=== PATIENT | male | born 1945 | race Caucasian/White ===

== ENCOUNTER 2017-12-11 12:58 | Emergency (ER) | payer MEDICARE ==
[2015-11-19 12:08] VITALS: BMI 27.9
[~2017-12-11 12:58] MED LIST: ASPIRIN325 MG PO; BAYER CHEWABLE81 MG PO; LOPRESSOR25 MG PO; PLAVIX75 MG PO; PRAVACHOL20 MG PO; PRAVACHOL40 MG PO; VASOTEC20 MG PO
[2017-12-11 14:18] LABS: BASOPHILS 0.5 % (0-2); EOSINOPHILS 3.6 % (0-7); HEMATOCRIT 53.3 % (42.0-54.0); HEMOGLOBIN 17.9 g/dL (13.5-17.5); IMMATURE GRANULOCYTES 0.4 % (0-5); MCH 30.1 pg (26.0-34.0); MCHC 33.6 g/dL (31.0-37.0); MCV 89.7 fL (80.0-100.0); MEAN PLATELET VOLUME 9.3 fL (7.4-10.4); MONOCYTES 8.7 % (2-11); NEUTROPHILS 58.8 % (40-80); PLATELET COUNT 207 10x3/uL (130-400); RBC 5.94 10x6/uL (4.20-6.10); WBC 7.6 10x3/uL (4.8-10.8)
[2017-12-11 14:25] LABS: INR 1.02 (0.85-1.17)
[2017-12-11 14:28] LABS: D-DIMER-QUANTITATIVE < 0.27 ug/mLFEU (0.20-0.54)
[2017-12-11 14:35] LABS: ALBUMIN 3.7 g/dL (3.4-5.0); ALKALINE PHOSPHATASE 60 U/L (46-116); ALT (SGPT) 31 U/L (10-68); BILIRUBIN - TOTAL 0.68 mg/dL (0.2-1.3); CALC OSMOLALITY 284 mosm/kg (275-300); CALCIUM 9.1 mg/dL (8.5-10.1); CARBON DIOXIDE 27.1 mmol/L (21.0-32.0); CHLORIDE - SERUM 106 mmol/L (98-107); GLUCOSE 117 mg/dL (74-106); POTASSIUM - SERUM 3.8 mmol/L (3.5-5.1); PROTEIN - SERUM 6.9 g/dL (6.4-8.2); SODIUM 141 mmol/L (136-145); UREA NITROGEN 22 mg/dL (7-18); eGFR NON AFRICAN AMERICAN 78 mL/min (90-120)
[2017-12-11 14:41] LABS: CREATINE KINASE 19 UL (21-232); MAGNESIUM - SERUM 2.4 mg/dL (1.8-2.4); PRO BNP 210 pg/mL (0-125)
[2017-12-11 14:42] LABS: TROPONIN-I < 0.017 ng/mL (0.000-0.060)
[2017-12-11 16:51] LABS: APPEARANCE CLEAR (CLEAR); BILIRUBIN NEGATIVE (NEGATIVE); COLOR DK YELLOW (YELLOW); GLUCOSE NEGATIVE (NEGATIVE); KETONE NEGATIVE (NEGATIVE); NITRITE NEGATIVE (NEGATIVE); PROTEIN TRACE mg/dL (NEGATIVE); SPECIFIC GRAVITY 1.025 (1.005-1.020); UROBILINOGEN NORMAL (NORMAL)
== END 2017-12-11 18:53 | disposition home or self-care (01) ==
LOC: D.ER 12:58
PROVIDERS: Nurse Practitioner Family
DX: M79.605 Pain in left leg (principal); R53.1 Weakness

== ENCOUNTER 2018-05-30 17:22 | Emergency (ER) | payer MEDICARE ==
[~2018-05-30] VITALS: Ht 167.6 cm; Wt 62.7 kg
[2018-05-30 17:27] VITALS: Ht 167.6 cm; Wt 62.7 kg
[2018-05-30] MEDS ORDERED: NORCO 10-325 TA1 TAB PO (17:28)
[2018-05-30] MEDS ORDERED: DESERYL50 M2 PO (17:29)
[2018-05-30] MEDS ORDERED: ABILIFY10 MG PO (17:29)
[2018-05-30 18:42] LABS: BASOPHILS 0.6 % (0-2); EOSINOPHILS 2.4 % (0-7); HEMATOCRIT 49.4 % (42.0-54.0); HEMOGLOBIN 16.6 g/dL (13.5-17.5); IMMATURE GRANULOCYTES 0.5 % (0-5); MCH 30.2 pg (26.0-34.0); MCHC 33.6 g/dL (31.0-37.0); MCV 89.8 fL (80.0-100.0); MEAN PLATELET VOLUME 9.1 fL (7.4-10.4); MONOCYTES 8.4 % (2-11); NEUTROPHILS 59.1 % (40-80); PLATELET COUNT 210 10x3/uL (130-400); RDW 14.5 % (11.5-14.5); WBC 8.8 10x3/uL (4.8-10.8)
[2018-05-30 19:04] LABS: ALBUMIN 3.4 g/dL (3.4-5.0); ALKALINE PHOSPHATASE 52 U/L (46-116); ALT (SGPT) 24 U/L (10-68); CALC OSMOLALITY 287 mosm/kg (275-300); CARBON DIOXIDE 27.7 mmol/L (21.0-32.0); CHLORIDE - SERUM 107 mmol/L (98-107); GLUCOSE 104 mg/dL (74-106); POTASSIUM - SERUM 3.6 mmol/L (3.5-5.1); PROTEIN - SERUM 6.3 g/dL (6.4-8.2); SODIUM 144 mmol/L (136-145); UREA NITROGEN 14 mg/dL (7-18); eGFR NON AFRICAN AMERICAN 78 mL/min (90-120)
[2018-05-30 19:54] LABS: APPEARANCE CLEAR (CLEAR); BILIRUBIN NEGATIVE (NEGATIVE); COLOR DK YELLOW (YELLOW); GLUCOSE NEGATIVE (NEGATIVE); KETONE NEGATIVE (NEGATIVE); NITRITE NEGATIVE (NEGATIVE); PROTEIN NEGATIVE (NEGATIVE); UROBILINOGEN NORMAL (NORMAL)
[2018-05-30 19:55] LABS: BACTERIA FEW /hpf (NONE SEEN); CALCIUM OXALATE CRYSTALS 0-5 /hpf (NONE SEEN); EPITHELIAL CELLS 0-5 /hpf (0-5); MUCUS >1+ /lpf (NONE SEEN); RED CELLS - URINE 0-5 /hpf (0-5)
[2018-05-30 20:28] VITALS: BP 155/72
== END 2018-05-30 20:29 | disposition home or self-care (01) ==
LOC: D.ER 17:22
PROVIDERS: Emergency Medicine
DX: R26.89 Other abnormalities of gait and mobility (principal); Z91.81 History of falling; Z79.01 Long term (current) use of anticoagulants; I11.0 Hypertensive heart disease with heart failure; I50.9 Heart failure, unspecified; I25.10 Atherosclerotic heart disease of native coronary artery without angina pectoris; J44.9 Chronic obstructive pulmonary disease, unspecified

== ENCOUNTER 2018-11-09 20:35 | Inpatient (IN) | payer MEDICARE ==
[~2018-11-09] VITALS: Ht 167.6 cm; Wt 76.7 kg
[~2018-11-09 20:35] MED LIST changes: +ABILIFY10 MG PO; +DESERYL50 M2 PO; +NORCO 10-325 TA1 TAB PO
[2018-11-09 21:07] LABS: BASOPHILS 0.3 % (0-2); HEMATOCRIT 57.6 % (42.0-54.0); HEMOGLOBIN 19.6 g/dL (13.5-17.5); IMMATURE GRANULOCYTES 0.3 % (0-5); LYMPHOCYTES 10.5 % (15-50); MCV 85.3 fL (80.0-100.0); MEAN PLATELET VOLUME 9.4 fL (7.4-10.4); NEUTROPHILS 79.9 % (40-80); PLATELET COUNT 209 10x3/uL (130-400); RDW 14.9 % (11.5-14.5); WBC 14.9 10x3/uL (4.8-10.8)
[2018-11-09 21:12] LABS: RBC 6.75 10x6/uL (4.20-6.10)
[2018-11-09 21:25] LABS: ALBUMIN 3.8 g/dL (3.4-5.0); ALKALINE PHOSPHATASE 72 U/L (46-116); ALT (SGPT) 22 U/L (10-68); BILIRUBIN - TOTAL 1.07 mg/dL (0.2-1.3); CALC OSMOLALITY 282 mosm/kg (275-300); CALCIUM 9.1 mg/dL (8.5-10.1); CHLORIDE - SERUM 104 mmol/L (98-107); CREATININE - SERUM 1.1 mg/dL (0.6-1.3); GLUCOSE 124 mg/dL (74-106); POTASSIUM - SERUM 3.8 mmol/L (3.5-5.1); PROTEIN - SERUM 7.5 g/dL (6.4-8.2); SODIUM 141 mmol/L (136-145); UREA NITROGEN 15 mg/dL (7-18); eGFR NON AFRICAN AMERICAN 70 mL/min (90-120)
[2018-11-09 21:32] LABS: AMYLASE - SERUM 88 U/L (25-115); LIPASE 127 U/L (73-393)
[2018-11-09 21:33] LABS: TROPONIN-I < 0.017 ng/mL (0.000-0.060)
[2018-11-09 23:49] LABS: APPEARANCE HAZY (CLEAR); BILIRUBIN NEGATIVE (NEGATIVE); COLOR YELLOW (YELLOW); GLUCOSE NEGATIVE (NEGATIVE); KETONE NEGATIVE (NEGATIVE); NITRITE NEGATIVE (NEGATIVE); PROTEIN NEGATIVE (NEGATIVE); SPECIFIC GRAVITY 1.015 (1.005-1.020); UROBILINOGEN NORMAL (NORMAL)
--- NOTE | 2018-11-10 00:15 | NUR ---
RECIEVED TO ROOM FROM ER ALERT AND ORIENTIATED, VERY KNIK AT BEDSIDE EXPLAINED THAT WOULD HAVE HOME SERVICE CONSULTANT MORPHINE FOR PAIN CONTROL STATES HE HAS HAD THAT BEFOR AND KNOWS HOW TO USE IT, CALL LIGHT IN REACH, INSTRUCTED TO CALL FOR ASSISTANCE BEFORE GETTING UP VERBALIZED UNDERSTANDING, SEE ASSESSMENT
[2018-11-10 00:56] VITALS: BP 143/77; BMI 27.3
[2018-11-10 04:47] VITALS: BP 128/84
[2018-11-10 05:32] LABS: BASOPHILS 0.3 % (0-2); EOSINOPHILS 0.8 % (0-7); HEMATOCRIT 50.1 % (42.0-54.0); HEMOGLOBIN 16.1 g/dL (13.5-17.5); IMMATURE GRANULOCYTES 0.3 % (0-5); LYMPHOCYTES 13.1 % (15-50); MCHC 32.1 g/dL (31.0-37.0); MEAN PLATELET VOLUME 9.5 fL (7.4-10.4); NEUTROPHILS 76.5 % (40-80); PLATELET COUNT 183 10x3/uL (130-400); RBC 5.74 10x6/uL (4.20-6.10)
[2018-11-10 05:35] LABS: MCV 87.3 fL (80.0-100.0); WBC 10.9 10x3/uL (4.8-10.8)
[2018-11-10 06:01] LABS: ALKALINE PHOSPHATASE 50 U/L (46-116); BILIRUBIN - TOTAL 0.81 mg/dL (0.2-1.3); CALC OSMOLALITY 284 mosm/kg (275-300); CALCIUM 7.7 mg/dL (8.5-10.1); CARBON DIOXIDE 25.6 mmol/L (21.0-32.0); CHLORIDE - SERUM 109 mmol/L (98-107); GLUCOSE 106 mg/dL (74-106); POTASSIUM - SERUM 3.9 mmol/L (3.5-5.1); SODIUM 143 mmol/L (136-145); UREA NITROGEN 12 mg/dL (7-18)
[2018-11-10 06:26] LABS: ALBUMIN 2.8 g/dL (3.4-5.0); ALT (SGPT) 15 U/L (10-68); CREATININE - SERUM 0.8 mg/dL (0.6-1.3); PROTEIN - SERUM 5.6 g/dL (6.4-8.2); eGFR NON AFRICAN AMERICAN > 90 mL/min (90-120)
--- NOTE | 2018-11-10 08:00 | NUR ---
MORNING ASSESSMENT COMPLETE. SEE ASSESSMENT FLWNETTIE FOR FURTHER DETAILS. PT LYING IN BED AAO X4 TO PERSON, PLACE, TIME, AND SITUATION. FAMILY AT BEDSIDE. DENIES NEEDS AT THIS TIME. CL IN REACH. SIDE RAILS UP X3 FOR PATIENT SAEFTY. BED IN LOWEST POSITION
[2018-11-10 09:19] VITALS: BP 138/75
[2018-11-10 12:43] VITALS: BP 136/77
[2018-11-10 13:26] VITALS: Ht 167.6 cm; Wt 76.7 kg
--- NOTE | 2018-11-10 14:47 | MORECARE ---
CASE MANAGEMENT DISCHARGE SUMMARY PATIENT: LORETTA GUAMAN UNIT: [id number] ADM DATE: 11/09/18 AGE: 73 : 47 SEX: M ROOM/BED: D.2233 AUTHOR: NATALI CORDOVA PHYSICIAN: REFERRING PHYSICIAN: SHAE RIVERA MD DATE OF SERVICE: 11/10/18 Discharge Plan Patient Name: LORETTA GUAMAN [facility] [facility] 1945 Planned Disposition: Home Anticipated Discharge Date: Discharge Date: Expected LOS: Initial Reviewer: [email or web address] Initial Review Date: 11/10/2018 Generated: 11/10/18 3:47 pm Patient Name: LORETTA GUAMAN Page [id number] at 1447 All edits/amendments must be made on the electronic document DICTATION DATE: 11/10/18 1446 GROUP MANAGING DIRECTOR: LES 11/10/18 1446 RPT#: [id number] DC DATE: STATUS: ADM IN [facility] [address] [place] [address] END OF REPORT
--- NOTE | 2018-11-10 14:56 | MORECARE ---
CASE MANAGEMENT DISCHARGE SUMMARY PATIENT: LORETTA CONTE UNIT: [id number] ADM DATE: 11/09/18 AGE: 73 : 47 SEX: M ROOM/BED: D.2233 AUTHOR: NATALI CORDOVA PHYSICIAN: REFERRING PHYSICIAN: SHAE RIVERA MD DATE OF SERVICE: 11/10/18 Discharge Plan Patient Name: LORETTA CONTE [facility] [facility] 1945 Planned Disposition: Home Anticipated Discharge Date: Discharge Date: Expected LOS: Initial Reviewer: [email or web address] Initial Review Date: 11/10/2018 Generated: 11/10/18 3:56 pm DCPIA - Discharge Planning Initial Assessment Updated by [email or web address]: Celeste Newberry on 11/10/18 2:51 pm * Is the patient Alert and Oriented? Yes * How many steps to enter\exit or inside your home? 1 flight/0 * PCP Dr. Viramontes * Pharmacy [facility] in [place] * Preadmission Environment Home with Family * ADLs Independent * Equipment Cane Walker * List name and contact numbers for known caregivers / representatives who currently or will assist patient after discharge: Emili Conte - spouse Safia Odom DTR * Verbal permission to speak to the caregivers and representatives has been obtained from the patient. Yes * Community resources currently utilized None * Additional services required to return to the preadmission environment? No * Can the patient safely return to the preadmission environment? Yes * Has this patient been hospitalized within the prior 30 days at any hospital? No Last DP export: 11/10/18 1:47 p Patient Name: LORETTA CONTE Page 99444 at 1456 All edits/amendments must be made on the electronic document DICTATION DATE: 11/10/181455 SEWING MACHINE ASSEMBLER: LES 11/10/181455 RPT#: [id number] DC DATE: STATUS: ADM IN [facility] [address] [place] [address] END OF REPORT
--- NOTE | 2018-11-10 15:06 | MORECARE ---
CASE MANAGEMENT DISCHARGE SUMMARY PATIENT: LORETTA CONTE UNIT: [id number] ADM DATE: 11/09/18 AGE: 73 : 47 SEX: M ROOM/BED: D.2233 AUTHOR: NATALI CORDOVA PHYSICIAN: REFERRING PHYSICIAN: SHAE RIVERA MD DATE OF SERVICE: 11/10/18 Discharge Plan Patient Name: LORETTA CONTE Facility: [facility]:[place] : 1945 Planned Disposition: Home Anticipated Discharge Date: Discharge Date: Expected LOS: Initial Reviewer: [email or web address] Initial Review Date: 11/10/2018 Generated: 11/10/18 4:06 pm Comments DCP- Discharge Planning Updated by [email or web address]: Celeste Newberry on 11/10/18 1:[address] Patient Name: LORETTA CONTE Admission Status: ER Accout number: [id number] Admission Date: 11-09-2018 : 1945 Admission Diagnosis: Attending: SHAE RIVERA Current LOS: 1 Anticipated DC Date: Planned Disposition: Home Primary Insurance: UNINSURED DISCOUNT PLAN Discharge Planning Comments: CM met with patient to discuss discharge planning, he is alone in the room. He states he lives with his . States he is independent with all ADL's and AIDL's. States he has a cane and a walker, but he does not use them. States his daughter, Safia, will drive him home on discharge. I discussed the availability of inpatient rehab, SNF, home health and additional DME if needed. He declines needs at this time. States his discharge plan is to return home with his and feels this is a safe discharge. CM will continue to follow and assist with discharge planning/needs. Spout Liner: Celeste Newberry DCPIA - Discharge Planning Initial Assessment Updated by [email or web address]: Celeste Newberry on 11/10/18 2:51 pm * Is the patient Alert and Oriented? Yes * How many steps to enter\exit or inside your home? 1 flight/0 * PCP Dr. Viramontes * Pharmacy [facility] in [place] * Preadmission Environment Home with Family * ADLs Independent * Equipment Cane Walker * List name and contact numbers for known caregivers / representatives who currently or will assist patient after discharge: Emili Conte - spouse Safia Gutierrez - VERN * Verbal permission to speak to the caregivers and representatives has been obtained from the patient. Yes * Community resources currently utilized None * Additional services required to return to the preadmission environment? No * Can the patient safely return to the preadmission environment? Yes * Has this patient been hospitalized within the prior 30 days at any hospital? No Last DP export: 11/10/18 1:56 p Patient Name: LORETTA CONTE Page 78116 at 1506 All edits/amendments must be made on the electronic document DICTATION DATE: 11/10/18 1506 DRIVERS LICENSE EXAMINER: LES 11/10/18 1506 RPT#: [id number] DC DATE: STATUS: ADM IN [facility] [address] [place] [address] END OF REPORT
[2018-11-10 16:14] VITALS: BP 120/78
--- NOTE | 2018-11-10 20:18 | NUR ---
ASSESSMENT COMPLETE. NO DISTRESS NOTED. PT WITHOUT COMPLAINTS AT THIS TIME.
[2018-11-10 21:02] VITALS: BP 168/76
--- NOTE | 2018-11-10 23:42 | NUR ---
PT LAYING IN BED, EYES CLOSED, CHEST RISING AND FALLING.
[2018-11-11 04:46] VITALS: BP 126/71
--- NOTE | 2018-11-11 04:49 | NUR ---
I have reviewed this patient and I concur with the Shift Assessment completed by the Licensed Practical Nurse today this shift.
--- NOTE | 2018-11-11 05:20 | NUR ---
PT LAYING IN BED AT THIS TIME. NO DISTRESS NOTED. NO COMPLAINTS AT THIS TIME.
[2018-11-11 06:33] LABS: BASOPHILS 0.4 % (0-2); EOSINOPHILS 1.8 % (0-7); HEMATOCRIT 45.5 % (42.0-54.0); HEMOGLOBIN 14.6 g/dL (13.5-17.5); IMMATURE GRANULOCYTES 0.2 % (0-5); LYMPHOCYTES 14.4 % (15-50); MCHC 32.1 g/dL (31.0-37.0); MCV 87.3 fL (80.0-100.0); MEAN PLATELET VOLUME 9.5 fL (7.4-10.4); MONOCYTES 7.2 % (2-11); PLATELET COUNT 171 10x3/uL (130-400); RBC 5.21 10x6/uL (4.20-6.10); RDW 14.9 % (11.5-14.5); WBC 8.5 10x3/uL (4.8-10.8)
[2018-11-11 06:46] LABS: CALC OSMOLALITY 277 mosm/kg (275-300); CALCIUM 8.1 mg/dL (8.5-10.1); CARBON DIOXIDE 25.5 mmol/L (21.0-32.0); CHLORIDE - SERUM 106 mmol/L (98-107); CREATININE - SERUM 0.8 mg/dL (0.6-1.3); GLUCOSE 85 mg/dL (74-106); POTASSIUM - SERUM 3.8 mmol/L (3.5-5.1); SODIUM 141 mmol/L (136-145); eGFR NON AFRICAN AMERICAN > 90 mL/min (90-120)
[2018-11-11 06:47] LABS: UREA NITROGEN 8 mg/dL (7-18)
[2018-11-11 09:35] VITALS: BP 155/86
--- NOTE | 2018-11-11 10:38 | NUR ---
MORNING ASSESSMENT COMPLETE. SEE ASSESSMENT FLOWSHEET FOR FURHTER DETAILS. PT LYING IN BED AAO X4 TO PERSON, PLACE, TIME, AND SITUATION. DENIES NEEDS AT THIS TIME. CL IN REACH. SIDE RAILS UP X3 FOR PT SAFETY. BED IN LOWEST POSITION.
[2018-11-11 13:24] VITALS: BP 139/79
[2018-11-11 17:46] VITALS: BP 127/62
[2018-11-11 20:00] VITALS: BP 116/58
[2018-11-12] VITALS: BP 125/68
--- NOTE | 2018-11-12 03:40 | NUR ---
A&OX3, DENIES PAIN/DISCOMFORT, STATES IT IS WELL CONTROLLED WITH MOLDING PLASTERER. DENIES CURRENT NEEDS. WILL CONTINUE TO MONITOR.
[2018-11-12 04:00] VITALS: BP 112/76
--- NOTE | 2018-11-12 07:32 | NUR ---
I CONCUR WITH AWS ARCHITECT ASSESSMENT.
--- NOTE | 2018-11-12 07:32 | NUR ---
I CONCUR WITH OBSTETRICS GYN ASSESSMENT.
--- NOTE | 2018-11-12 07:45 | NUR ---
PATIENT IN BED WITH EYES CLOSED RESTING QUIETLY. CALL LIGHT WITHIN REACH.
[2018-11-12 08:38] LABS: HEMATOCRIT 45.5 % (42.0-54.0); HEMOGLOBIN 14.9 g/dL (13.5-17.5); LYMPHOCYTES 24.8 % (15-50); MCH 27.9 pg (26.0-34.0); MCHC 32.7 g/dL (31.0-37.0); MEAN PLATELET VOLUME 8.8 fL (7.4-10.4); PLATELET COUNT 192 10x3/uL (130-400); RBC 5.34 10x6/uL (4.20-6.10); RDW 14.1 % (11.5-14.5)
[2018-11-12 08:41] LABS: MCV 85.2 fL (80.0-100.0); WBC 6.1 10x3/uL (4.8-10.8)
[2018-11-12 08:53] LABS: CALC OSMOLALITY 280 mosm/kg (275-300); CALCIUM 7.8 mg/dL (8.5-10.1); CARBON DIOXIDE 25.7 mmol/L (21.0-32.0); CHLORIDE - SERUM 107 mmol/L (98-107); CREATININE - SERUM 0.5 mg/dL (0.6-1.3); GLUCOSE 90 mg/dL (74-106); POTASSIUM - SERUM 3.7 mmol/L (3.5-5.1); SODIUM 142 mmol/L (136-145); UREA NITROGEN 6 mg/dL (7-18); eGFR NON AFRICAN AMERICAN > 90 mL/min (90-120)
--- NOTE | 2018-11-12 10:30 | NUR ---
PATIENT SITTING UP IN CHAIR WITH NO COMPLAINTS. ALARM ON. CALL LIGHT WITHIN REACH.
--- NOTE | 2018-11-12 12:43 | NUR ---
Nutrition Follow Up: Chart reviewed. Diet has been advanced to regular. No BM since admit Wt stable Meds and labs reviewed Rec continue current ELIAN. RD following.
[2018-11-12 14:20] VITALS: BP 156/89
[2018-11-12 17:57] VITALS: BP 135/73
--- NOTE | 2018-11-12 18:45 | NUR ---
PATIENT IN BED WITH IV INTACT. NO COMPLAINTS. FAMILY AT BEDSIDE. CALL LIGHT WITHIN REACH.
--- NOTE | 2018-11-12 19:39 | NUR ---
RECEIVED REPORT, ASSUMED CARE, SLEEPING, BREATHING EVEN UNLABORED, CALL LIGHT IN REACH, NO S/S OF DISTRESS NOTED, BED LOWEST POSITION, WILL CONTINUE POC
[2018-11-12 20:03] VITALS: BP 145/78
[2018-11-12 23:47] VITALS: BP 159/88
--- NOTE | 2018-11-13 02:13 | NUR ---
I have reviewed this patient and I concur with the Shift Assessment completed by the Licensed Practical Nurse today this shift. PT IS AWAKE AT THIS TIME WITH THE TV ON AND URINAL AT THE BEDSIDE.
[2018-11-13 04:00] VITALS: BP 172/91
[2018-11-13 05:59] LABS: BASOPHILS 0.6 % (0-2); EOSINOPHILS 4.3 % (0-7); HEMATOCRIT 48.4 % (42.0-54.0); HEMOGLOBIN 15.9 g/dL (13.5-17.5); IMMATURE GRANULOCYTES 0.3 % (0-5); LYMPHOCYTES 28.7 % (15-50); MCH 28.3 pg (26.0-34.0); MCHC 32.9 g/dL (31.0-37.0); MCV 86.1 fL (80.0-100.0); MEAN PLATELET VOLUME 9.4 fL (7.4-10.4); MONOCYTES 9.1 % (2-11); PLATELET COUNT 219 10x3/uL (130-400); RBC 5.62 10x6/uL (4.20-6.10); RDW 14.7 % (11.5-14.5); WBC 6.9 10x3/uL (4.8-10.8)
[2018-11-13 06:17] LABS: CALC OSMOLALITY 284 mosm/kg (275-300); CALCIUM 8.1 mg/dL (8.5-10.1); CHLORIDE - SERUM 107 mmol/L (98-107); GLUCOSE 93 mg/dL (74-106); POTASSIUM - SERUM 3.3 mmol/L (3.5-5.1); SODIUM 144 mmol/L (136-145); UREA NITROGEN 7 mg/dL (7-18); eGFR NON AFRICAN AMERICAN 88 mL/min (90-120)
[2018-11-13 06:18] LABS: CREATININE - SERUM 0.9 mg/dL (0.6-1.3)
--- NOTE | 2018-11-13 07:40 | NUR ---
PT SITTING UP IN BED WATCHING TV. NO ACUTE DISTRESS NOTED AT THIS TIME. REPORTS LOWER ABDOMINAL PAIN 2/10 AT THIS TIME. SALINE LOCK TO RIGHT WRIST, SITE WITHOUT REDNESS OR EDEMA. DENIES FURTHER NEEDS AT THIS TIME. CL WITHIN REACH. ENCOURAGED TO CALL WITH NEEDS. CONTINUE POC
[2018-11-13 08:44] VITALS: BP 183/89
[2018-11-13] MEDS ORDERED: LEVOFLOXACIN500 MG PO (10:31)
[2018-11-13] MEDS ORDERED: MIRALAX17 GM PO (10:32)
[2018-11-13] MEDS ORDERED: HYDROCODON-ACE1 EAC7 PO (10:32)
[2018-11-13] MEDS ORDERED: FLAGYL500 MG PO (10:32)
[2018-11-13 12:32] VITALS: BP 166/80
--- NOTE | 2018-11-13 13:50 | NUR ---
PT DISCHARGE INSTRUCTIONS PROVIDED TO PT AND FAMILY. NO QUESTIONS VOICED. [facility] [place] [facility] TO [facility]IN[facility]. SALINE LOC D/C'D FROM RIGHT WRIST, CATH INTACT. PT TAKEN OUT VIA W/C TO PRIVATE VEHICLE WITH ALL PERSONAL POSESSIONS.
== END 2018-11-13 14:16 | disposition home or self-care (01) | DRG 392 ==
LOC: D.ER 20:35 → D.MS 23:14 → D.ER 11-11 17:03 → D.MS 11-11 17:03
PROVIDERS: Family Medicine; ADMIT Surgery; ATTEND Surgery
DX: K57.20 Diverticulitis of large intestine with perforation and abscess without bleeding (principal); G81.94 Hemiplegia, unspecified affecting left nondominant side; I11.0 Hypertensive heart disease with heart failure; I50.9 Heart failure, unspecified; I25.10 Atherosclerotic heart disease of native coronary artery without angina pectoris; E78.5 Hyperlipidemia, unspecified

== ENCOUNTER 2019-02-27 16:53 | Inpatient (IN) | payer MEDICARE ==
[~2019-02-27] VITALS: Ht 167.6 cm; Wt 74.8 kg
[~2019-02-27 16:53] MED LIST changes: +FLAGYL500 MG PO; +HYDROCODON-ACE1 EA10 PO; +HYDROCODON-ACE1 EAC7 PO; +LEVOFLOXACIN500 MG PO; +MIRALAX17 GM PO; -NORCO 10-325 TA1 TAB PO
[2019-02-27 17:27] LABS: BASOPHILS 0.2 % (0-2); EOSINOPHILS 2.4 % (0-7); HEMATOCRIT 48.5 % (42.0-54.0); HEMOGLOBIN 16.2 g/dL (13.5-17.5); IMMATURE GRANULOCYTES 0.5 % (0-5); LYMPHOCYTES 16.3 % (15-50); MCH 29.6 pg (26.0-34.0); MCHC 33.4 g/dL (31.0-37.0); MCV 88.7 fL (80.0-100.0); MEAN PLATELET VOLUME 9.6 fL (7.4-10.4); MONOCYTES 7.9 % (2-11); NEUTROPHILS 72.7 % (40-80); PLATELET COUNT 198 10x3/uL (130-400); RBC 5.47 10x6/uL (4.20-6.10); RDW 14.8 % (11.5-14.5); WBC 10.2 10x3/uL (4.8-10.8)
[2019-02-27 17:47] LABS: ALKALINE PHOSPHATASE 65 U/L (46-116); ALT (SGPT) 38 U/L (10-68); BILIRUBIN - TOTAL 0.34 mg/dL (0.2-1.3); CALC OSMOLALITY 286 mosm/kg (275-300); CALCIUM 8.4 mg/dL (8.5-10.1); CARBON DIOXIDE 26.7 mmol/L (21.0-32.0); CHLORIDE - SERUM 110 mmol/L (98-107); GLUCOSE 103 mg/dL (74-106); POTASSIUM - SERUM 3.7 mmol/L (3.5-5.1); PROTEIN - SERUM 6.5 g/dL (6.4-8.2); SODIUM 143 mmol/L (136-145); UREA NITROGEN 18 mg/dL (7-18); eGFR NON AFRICAN AMERICAN 78 mL/min (90-120)
[2019-02-27 17:53] LABS: AMYLASE - SERUM 88 U/L (25-115); LIPASE 176 U/L (73-393); TROPONIN-I 0.022 ng/mL (0.000-0.060)
--- NOTE | 2019-02-27 18:25 | NUR ---
RESPIRATIOSN ARE EVEN AND UNLABORED AT THIS TIME. NO DISTRESS NOTED. COLOR WNL FOR RACE. VSS. FAMILY AT BEDSIDE. IV PATENT WITHOUT SIGNS OF INFILTRATION NOTED. WILL CONTINUE TO MONITOR.
--- NOTE | 2019-02-27 18:25 | NUR ---
PT RETURNED FROM CT AT THIS TIME.
[2019-02-27 18:26] VITALS: BP 144/73
--- NOTE | 2019-02-27 20:25 | NUR ---
MIXED INVANZ IN 100 ML NORMAL SALINE INFUSING OVER 30 MINUTES.
[2019-02-27 20:37] LABS: APPEARANCE CLEAR (CLEAR); BILIRUBIN NEGATIVE (NEGATIVE); COLOR YELLOW (YELLOW); GLUCOSE NEGATIVE (NEGATIVE); KETONE NEGATIVE (NEGATIVE); NITRITE NEGATIVE (NEGATIVE); PROTEIN TRACE mg/dL (NEGATIVE); SPECIFIC GRAVITY 1.015 (1.005-1.020); UROBILINOGEN NORMAL (NORMAL)
[2019-02-27 20:39] VITALS: BP 150/76
[2019-02-27 20:39] LABS: BACTERIA FEW /hpf (NONE SEEN); RED CELLS - URINE 0-5 /hpf (0-5); WHITE CELLS - URINE RARE /hpf (0-5)
--- NOTE | 2019-02-27 21:00 | NUR ---
SOY STOPPED AT THIS TIME.
[2019-02-27] MEDS ORDERED: MIRALAX17 GM PO (21:33)
[2019-02-27] MEDS ORDERED: BISOPROLOL-HCTZ1 TA5 PO (21:37)
[2019-02-27 23:01] VITALS: BP 141/76; BMI 26.7
[2019-02-28 01:27] VITALS: BP 120/80
--- NOTE | 2019-02-28 07:15 | NUR ---
PT RESTING IN BED WITH EYES CLOSED. OPENS EYES SPONTANEOUSLY. NO ACUTE DISTRESS NOTED AT THIS TIME. REPORTS PAIN 3/10 AT THIS TIME, WITH ABDMINAL TENDERNESS. REMAINS NPO AT THIS TIME. IV TO R AC WITH D5LR @ 100ML/HR INFUSING VIA PUMP. SITE WITHOUT REDNESS OR EDEMA. DENIES FURTHER NEEDS AT THIS TIME. CL WITHIN REACH. ENCOURAGED TO CALL WITH NEEDS. CONTINUE POC
[2019-02-28 08:43] VITALS: BP 124/70
--- NOTE | 2019-02-28 10:15 | NUR ---
PT RESTING QUIETLY IN BED. NO ACUTE DISTRESS NOTED AT THIS TIME. RATES PAIN 2/10 AT THIS TIME. PT ASSISTED FROM BED TO BATHROOM AND BACK TO BED. FRANCISCO WELL. DENIES FURTHER NEEDS AT THIS TIME. CL WITHIN REACH. ENCOURAGED TO CALL WITH NEEDS.
[2019-02-28 12:17] VITALS: BMI 26.6
[2019-02-28 13:03] LABS: BASOPHILS 0.5 % (0-2); EOSINOPHILS 3.1 % (0-7); HEMATOCRIT 48.4 % (42.0-54.0); HEMOGLOBIN 15.9 g/dL (13.5-17.5); IMMATURE GRANULOCYTES 0.3 % (0-5); LYMPHOCYTES 23.6 % (15-50); MCH 29.3 pg (26.0-34.0); MCHC 32.9 g/dL (31.0-37.0); MCV 89.3 fL (80.0-100.0); MEAN PLATELET VOLUME 9.5 fL (7.4-10.4); MONOCYTES 9.4 % (2-11); NEUTROPHILS 63.1 % (40-80); PLATELET COUNT 173 10x3/uL (130-400); RBC 5.42 10x6/uL (4.20-6.10)
[2019-02-28 13:04] LABS: WBC 7.3 10x3/uL (4.8-10.8)
[2019-02-28 13:10] VITALS: BP 136/46
[2019-02-28 13:20] LABS: CALCIUM 8.1 mg/dL (8.5-10.1); CARBON DIOXIDE 26.1 mmol/L (21.0-32.0); CHLORIDE - SERUM 109 mmol/L (98-107); GLUCOSE 88 mg/dL (74-106); SODIUM 143 mmol/L (136-145)
[2019-02-28 13:24] LABS: CALC OSMOLALITY 282 mosm/kg (275-300); CREATININE - SERUM 0.5 mg/dL (0.6-1.3); POTASSIUM - SERUM 4.5 mmol/L (3.5-5.1); UREA NITROGEN 9 mg/dL (7-18); eGFR NON AFRICAN AMERICAN > 90 mL/min (90-120)
[2019-02-28 17:15] VITALS: BP 128/56
[2019-02-28 19:48] VITALS: Ht 167.6 cm; Wt 74.8 kg
[2019-02-28 21:57] VITALS: BP 116/59
[2019-03-01 00:53] VITALS: BP 127/57
--- NOTE | 2019-03-01 04:00 | NUR ---
A&O X 4, AMBULATORY-STANDBY ASSIST. IV TO RIGHT AC REDDENED AND EDEMATOUS. PT REPORTS SLIGHT PAIN WHILE INFUSING. DCd WITH CATH INTACT. 22G RESITED TO RIGH TFOREARM 1ST ATTEMPT. PT TOLERATED WELL. WILL CONTINUE TO MONITOR.
--- NOTE | 2019-03-01 04:44 | NUR ---
I have reviewed this patient and I concur with the Shift Assessment completed by the Licensed Practical Nurse today this shift.
[2019-03-01 04:45] VITALS: BP 120/58
[2019-03-01 07:03] LABS: BASOPHILS 0.5 % (0-2); EOSINOPHILS 3.2 % (0-7); HEMATOCRIT 46.7 % (42.0-54.0); HEMOGLOBIN 15.2 g/dL (13.5-17.5); IMMATURE GRANULOCYTES 0.3 % (0-5); MCH 28.7 pg (26.0-34.0); MCHC 32.5 g/dL (31.0-37.0); MCV 88.3 fL (80.0-100.0); MEAN PLATELET VOLUME 9.6 fL (7.4-10.4); MONOCYTES 8.6 % (2-11); NEUTROPHILS 66.4 % (40-80); RBC 5.29 10x6/uL (4.20-6.10); RDW 14.5 % (11.5-14.5)
[2019-03-01 07:05] LABS: CALCIUM 8.4 mg/dL (8.5-10.1); CARBON DIOXIDE 30.1 mmol/L (21.0-32.0); CHLORIDE - SERUM 110 mmol/L (98-107); GLUCOSE 88 mg/dL (74-106); SODIUM 146 mmol/L (136-145)
[2019-03-01 07:06] LABS: CALC OSMOLALITY 287 mosm/kg (275-300); CREATININE - SERUM 0.8 mg/dL (0.6-1.3); POTASSIUM - SERUM 3.5 mmol/L (3.5-5.1); UREA NITROGEN 6 mg/dL (7-18); eGFR NON AFRICAN AMERICAN > 90 mL/min (90-120)
[2019-03-01 07:28] LABS: PLATELET COUNT 212 10x3/uL (130-400)
--- NOTE | 2019-03-01 08:33 | NUR ---
AM MEDICATION NOT GIVEN PT NPO. SCAN OFF IN ERROR.
[2019-03-01 09:08] VITALS: BP 175/75
--- NOTE | 2019-03-01 10:31 | NUR ---
PT BACK FROM SHOWER. RECONTINED TO IV. NO COMPLAINTS AT THIS TIME. CALL LIGHT IN REACH. AT BEDSIDE.
[2019-03-01 13:28] VITALS: BP 156/79
--- NOTE | 2019-03-01 15:09 | MORECARE ---
CASE MANAGEMENT DISCHARGE SUMMARY PATIENT: LORETTA CONTE UNIT: [id number] ADM DATE: 02/27/19 AGE: 73 : 47 SEX: M ROOM/BED: D.2213 AUTHOR: ART,DOC PHYSICIAN: REFERRING PHYSICIAN: MYRNA GERMAN MD DATE OF SERVICE: 03/01/19 Discharge Plan Patient Name: LORETTA CONTE Facility: [facility]:[place] : 1945 Planned Disposition: Home Anticipated Discharge Date: Discharge Date: Expected LOS: Initial Reviewer: [email or web address] Initial Review Date: 02/27/2019 Generated: 03/01/19 4:09 pm Comments DCP- Discharge Planning Updated by [email or web address]: Nancie Fonseca on 03/01/19 2:[address] Patient Name: LORETTA CONTE Admission Status: ER Accout number: [id number] Admission Date: 02-27-2019 : 1945 Admission Diagnosis: Attending: MYRNA GERMAN Current LOS: 2 Anticipated DC Date: Planned Disposition: Home Primary Insurance: HU[employer]NA CHOICE PPO MCR ADVANT Discharge Planning Comments: CM met with patient & to complete initial dc planning assessment. CM educated patient on the CM role and verbal consent given by patient to complete assessment. Patient lives at home with his spouse where he is independent with his care. At discharge patient plans to return home and feels this is a safe discharge. CM discussed availability of home health, rehab services, and medical equipment. He has a walker and a cane at home. Patient denied known discharge needs at this time. CM will continue to follow and will assist as needed with dc plans/needs. Line Server: Nancie Fonseca DCPIA - Discharge Planning Initial Assessment Updated by [email or web address]: Nancie Fonseca on 03/01/19 3:02 pm * Is the patient Alert and Oriented? Yes * How many steps to enter\exit or inside your home? * PCP Wander * Pharmacy [facility] in [place] * Preadmission Environment Home with Family * ADLs Independent * Equipment Cane Rolling Walker * List name and contact numbers for known caregivers / representatives who currently or will assist patient after discharge: Emili Conte [phone] * Verbal permission to speak to the caregivers and representatives has been obtained from the patient. Yes * Community resources currently utilized None * Additional services required to return to the preadmission environment? No * Can the patient safely return to the preadmission environment? Yes * Has this patient been hospitalized within the prior 30 days at any hospital? No Patient Name: LORETTA CONTE Page 23923 at 1509 All edits/amendments must be made on the electronic document DICTATION DATE: 03/01/191508 COMIC WRITER: LES 03/01/199 RPT#: [id number] DC DATE: STATUS: ADM IN [facility] [address] [place] [address] END OF REPORT
[2019-03-01 17:04] VITALS: BP 157/80
[2019-03-01 21:56] VITALS: BP 183/90
--- NOTE | 2019-03-02 | NUR ---
ENTERED ROOM IN RESPONSE TO CL. ASSISTED PT TO RESTROOM. (STAND BY ASSIST.) A&O X 4, DENIES FURTHER NEEDS. REQUESTS BROTH AND JELLO. TOLERATED WELL. WILL CONTINUE TO MONITOR.
[2019-03-02 01:32] VITALS: BP 158/72
--- NOTE | 2019-03-02 03:31 | NUR ---
I have reviewed this patient and I concur with the Shift Assessment completed by the Licensed Practical Nurse today this shift.
[2019-03-02 05:23] VITALS: BP 164/84
[2019-03-02 05:37] LABS: BASOPHILS 0.3 % (0-2); EOSINOPHILS 2.2 % (0-7); HEMATOCRIT 48.3 % (42.0-54.0); HEMOGLOBIN 16.1 g/dL (13.5-17.5); IMMATURE GRANULOCYTES 0.4 % (0-5); LYMPHOCYTES 19.1 % (15-50); MCHC 33.3 g/dL (31.0-37.0); MEAN PLATELET VOLUME 9.5 fL (7.4-10.4); MONOCYTES 9.1 % (2-11); NEUTROPHILS 68.9 % (40-80); PLATELET COUNT 206 10x3/uL (130-400); RBC 5.55 10x6/uL (4.20-6.10); RDW 14.4 % (11.5-14.5); WBC 6.9 10x3/uL (4.8-10.8)
[2019-03-02 06:03] LABS: CALC OSMOLALITY 281 mosm/kg (275-300); CALCIUM 8.4 mg/dL (8.5-10.1); CARBON DIOXIDE 27.6 mmol/L (21.0-32.0); CHLORIDE - SERUM 107 mmol/L (98-107); CREATININE - SERUM 0.8 mg/dL (0.6-1.3); GLUCOSE 82 mg/dL (74-106); POTASSIUM - SERUM 3.6 mmol/L (3.5-5.1); SODIUM 143 mmol/L (136-145); UREA NITROGEN 6 mg/dL (7-18); eGFR NON AFRICAN AMERICAN > 90 mL/min (90-120)
[2019-03-02 08:44] VITALS: BP 171/87
--- NOTE | 2019-03-02 10:00 | NUR ---
PT ALERT X 4, BIG SANDY. BREATH SOUNDS CLEAR BILAT. BOWEL SOUNDS HYPOACTIVE TO ALL MADERA, ABDOMEN DISTENDED AND TENDER. IV TO RIGHT FOREARM, PATENT, DRESSING CDI. PT REPORTING PAIN OF 4/10, NOT WANTING MEDICATION AT THIS TIME. BED LOW, CALL LIGHT IN REACH. NO OTHER NEEDS AT THIS TIME.
--- NOTE | 2019-03-02 12:31 | NUR ---
NUTRITION F//U PT TOLERATING CLEAR LIQUID DIET. PROCALAMINE @ 75 CC/HR PROVIDING 441 KCAL, 54 GM PROTEIN PER DAY. WILL MONITOR DIET ADVANCEMENT, PO INTAKE. RD FOLLOWING
[2019-03-02 13:31] VITALS: BP 163/84
[2019-03-02 17:21] VITALS: BP 157/79
[2019-03-02 21:25] VITALS: BP 133/75
[2019-03-03 02:22] VITALS: BP 126/77
--- NOTE | 2019-03-03 05:44 | NUR ---
I have reviewed this patient and I concur with the Shift Assessment completed by the Licensed Practical Nurse today this shift.
[2019-03-03 05:55] VITALS: BP 121/65
[2019-03-03 06:08] LABS: BASOPHILS 0.4 % (0-2); EOSINOPHILS 2.7 % (0-7); HEMATOCRIT 46.4 % (42.0-54.0); HEMOGLOBIN 15.6 g/dL (13.5-17.5); IMMATURE GRANULOCYTES 0.6 % (0-5); LYMPHOCYTES 16.4 % (15-50); MCH 28.9 pg (26.0-34.0); MCHC 33.6 g/dL (31.0-37.0); MCV 86.1 fL (80.0-100.0); MEAN PLATELET VOLUME 9.4 fL (7.4-10.4); MONOCYTES 10.9 % (2-11); PLATELET COUNT 200 10x3/uL (130-400); RBC 5.39 10x6/uL (4.20-6.10); RDW 14.7 % (11.5-14.5); WBC 7.7 10x3/uL (4.8-10.8)
[2019-03-03 06:30] LABS: CALC OSMOLALITY 282 mosm/kg (275-300); CALCIUM 8.3 mg/dL (8.5-10.1); CARBON DIOXIDE 28.1 mmol/L (21.0-32.0); CHLORIDE - SERUM 107 mmol/L (98-107); CREATININE - SERUM 0.8 mg/dL (0.6-1.3); GLUCOSE 95 mg/dL (74-106); POTASSIUM - SERUM 3.6 mmol/L (3.5-5.1); SODIUM 143 mmol/L (136-145); UREA NITROGEN 8 mg/dL (7-18); eGFR NON AFRICAN AMERICAN > 90 mL/min (90-120)
--- NOTE | 2019-03-03 08:01 | NUR ---
RESTING IN BED. CHEST RISING IN FALLING. NO S/S OF ACUTE DISTRESS. CL IN PLACE.
[2019-03-03 09:41] VITALS: BP 156/82
[2019-03-03] MEDS ORDERED: LEVAQUIN750 MG PO (12:13)
[2019-03-03] MEDS ORDERED: FLAGYL500 MG PO (12:13)
[2019-03-03 13:51] VITALS: BP 113/75
--- NOTE | 2019-03-03 14:28 | MORECARE ---
CASE MANAGEMENT DISCHARGE SUMMARY PATIENT: LORETTA CONTE UNIT: [id number] ADM DATE: 02/27/19 AGE: 73 : [birth year] SEX: M ROOM/BED: D.2213 AUTHOR: ARTDOC PHYSICIAN: REFERRING PHYSICIAN: MYRNA GERMAN MD DATE OF SERVICE: 03/03/19 Discharge Plan Patient Name: LORETTA CONTE Facility: [facility]:[place] : 1945 Planned Disposition: Home Anticipated Discharge Date: Discharge Date: Expected LOS: Initial Reviewer: [email or web address] Initial Review Date: 02/27/2019 Generated: 03/03/19 3:28 pm Comments DCP- Discharge Planning Updated by [email or web address]: Nancie Fonseca on 03/03/19 1:[address] Patient Name: LORETTA CONTE Encounter No: [id number] : 1945 Primary Insurance: [employer]NA [employer] PPO MCR ADVANT Anticipated DC Date: Planned Disposition: Home External Planned Provider: : DCP follow-up note: Patient and family in agreement with discharge plan. No changes to plan. IMM served and explained. Case management will follow and assist as needed. Nancie Fonseca DCP- Discharge Planning Updated by [email or web address]: Nancie Fonseca on 03/01/19 2:[address] Patient Name: LORETTA CONTE Admission Status: ER Accout number: [id number] Admission Date: 02-27-2019 : 1945 Admission Diagnosis: Attending: MYRNA GERMAN Current LOS: 2 Anticipated DC Date: Planned Disposition: Home Primary Insurance: HUMANA CHOICE PPO MCR ADVANT Discharge Planning Comments: CM met with patient & to complete initial dc planning assessment. CM educated patient on the CM role and verbal consent given by patient to complete assessment. Patient lives at home with his spouse where he is independent with his care. At discharge patient plans to return home and feels this is a safe discharge. CM discussed availability of home health, rehab services, and medical equipment. He has a walker and a cane at home. Patient denied known discharge needs at this time. CM will continue to follow and will assist as needed with dc plans/needs. Movers: Nancie Fonseca DCPIA - Discharge Planning Initial Assessment Updated by [email or web address]: Nancie Fonseca on 03/01/19 3:02 pm * Is the patient Alert and Oriented? Yes * How many steps to enter\exit or inside your home? * PCP Wander * Pharmacy [facility] in [place] * Preadmission Environment Home with Family * ADLs Independent * Equipment Cane Rolling Walker * List name and contact numbers for known caregivers / representatives who currently or will assist patient after discharge: Nakia Conte [phone] * Verbal permission to speak to the caregivers and representatives has been obtained from the patient. Yes * Community resources currently utilized None * Additional services required to return to the preadmission environment? No * Can the patient safely return to the preadmission environment? Yes * Has this patient been hospitalized within the prior 30 days at any hospital? No Coverage Notice Reviewer: [email or web address] - Nancie Fonseca Notice Issued Date-Time: 03/03/2019 14:24 Notice Type: IM Discharge Notice Notice Delivered To: Family Member Relationship to Patient: Spouse Plan Rep Name: nakia () Delivery Method: HAND - Hand Delivered Jacinta Days: Prior Verbal Notification: Recipient Understood Notice: Yes Recipient Signature: Yes Med Rec Note Co-signed by Attending: Coverage Notice Comment: Last DP export: 03/01/19 2:09 p Patient Name: LORETTA CONTE Page [id number] at 1428 All edits/amendments must be made on the electronic document DICTATION DATE: 03/03/191427 CUSTOMER SERVICE CLERK: LES 03/03/191427 RPT#: [id number] DC DATE: STATUS: ADM IN [facility] [address] [place] [address] END OF REPORT
[2019-03-03] MEDS ORDERED: HYDROCODON-ACE1 EA10 PO (15:08)
--- NOTE | 2019-03-03 15:31 | NUR ---
DC INSTRUCTIONS AND EDUCATION DONE WITH PT.
--- NOTE | 2019-03-03 17:32 | NUR ---
DC IV WITH TIP INTACT. ALL BELONGING TAKEN DOWN BY GRADDAUGHTER. PUSHED PT OUT BY WC TO FRONT LOBBY. AT SIDE. NO S/S OF ACUTE DISTRESS.
[2019-03-04 13:10] LABS: CEA 1.6 ng/mL (0.0-4.7)
--- NOTE | 2019-03-07 08:57 | MORECARE ---
CASE MANAGEMENT DISCHARGE SUMMARY PATIENT: LORETTA CONTE UNIT: [id number] ADM DATE: 02/27/19 AGE: 73 : [birth year] SEX: M ROOM/BED: D.2213 AUTHOR: NATALI CORDOVA PHYSICIAN: REFERRING PHYSICIAN: MYRNA GERMAN MD DATE OF SERVICE: 03/07/19 Discharge Plan Patient Name: LORETTA CONTE Facility: [facility]:[place] : 1945 Planned Disposition: Home Anticipated Discharge Date: Discharge Date: 03/03/2019 Expected LOS: 0 Initial Reviewer: [email or web address] Initial Review Date: 02/27/2019 Generated: 03/07/19 9:56 am Comments DCP- Discharge Planning Updated by [email or web address]: Nancie Fonseca on 03/03/19 1:[address] Patient Name: LORETTA CONTE Encounter No: [id number] : 1945 Primary Insurance: HUMANA CHOICE PPO MCR ADVANT Anticipated DC Date: Planned Disposition: Home External Planned Provider: : DCP follow-up note: Patient and family in agreement with discharge plan. No changes to plan. IMM served and explained. Case management will follow and assist as needed. Nancie Fonseca DCP- Discharge Planning Updated by [email or web address]: Nancie Fonseca on 03/01/19 2:[address] Patient Name: LORETTA CONTE Admission Status: ER Accout number: [id number] Admission Date: 02-27-2019 : 1945 Admission Diagnosis: Attending: MYRNA GERMAN Current LOS: 2 Anticipated DC Date: Planned Disposition: Home Primary Insurance: HUMANA CHOICE PPO MCR ADVANT Discharge Planning Comments: CM met with patient & to complete initial dc planning assessment. CM educated patient on the CM role and verbal consent given by patient to complete assessment. Patient lives at home with his spouse where he is independent with his care. At discharge patient plans to return home and feels this is a safe discharge. CM discussed availability of home health, rehab services, and medical equipment. He has a walker and a cane at home. Patient denied known discharge needs at this time. CM will continue to follow and will assist as needed with dc plans/needs. Hairspring Adjuster: Nancie Fonseca DCPIA - Discharge Planning Initial Assessment Updated by [email or web address]: Nancie Fonseca on 03/01/19 3:02 pm * Is the patient Alert and Oriented? Yes * How many steps to enter\exit or inside your home? * PCP Wander * Pharmacy [facility] in [place] * Preadmission Environment Home with Family * ADLs Independent * Equipment Cane Rolling Walker * List name and contact numbers for known caregivers / representatives who currently or will assist patient after discharge: Nakia Conte [phone] * Verbal permission to speak to the caregivers and representatives has been obtained from the patient. Yes * Community resources currently utilized None * Additional services required to return to the preadmission environment? No * Can the patient safely return to the preadmission environment? Yes * Has this patient been hospitalized within the prior 30 days at any hospital? No Coverage Notice Reviewer: [id number] - Nancie Fonseca Notice Issued Date-Time: 03/03/2019 14:24 Notice Type: IM Discharge Notice Notice Delivered To: Family Member Relationship to Patient: Spouse Move Coordinator Name: nakia () Delivery Method: HAND - Hand Delivered Jacinta Days: Prior Verbal Notification: Recipient Understood Notice: Yes Recipient Signature: Yes Med Rec Note Co-signed by Attending: Coverage Notice Comment: Last DP export: 03/03/19 1:28 p Patient Name: LORETTA CONTE Page 08897 at 0857 All edits/amendments must be made on the electronic document DICTATION DATE: 03/07/1956 RN PROGRESSIVE CARE: LES 03/07/19 0856 RPT#: [id number] DC DATE:03/03/19 STATUS: DIS IN [facility] [address] [place] [address] END OF REPORT
== END 2019-03-03 17:33 | disposition home or self-care (01) | DRG 392 ==
LOC: D.ER 16:53 → D.MS 19:10
PROVIDERS: Emergency Medicine; ADMIT Internal Medicine Nephrology; ATTEND Internal Medicine Nephrology
DX: K57.20 Diverticulitis of large intestine with perforation and abscess without bleeding (principal); N17.9 Acute kidney failure, unspecified; I10 Essential (primary) hypertension; I25.10 Atherosclerotic heart disease of native coronary artery without angina pectoris; J44.9 Chronic obstructive pulmonary disease, unspecified

== ENCOUNTER 2019-03-15 18:21 | Emergency (ER) | payer MEDICARE ==
[~2019-03-15] VITALS: Ht 167.6 cm; Wt 72.7 kg
[~2019-03-15 18:21] MED LIST changes: +BISOPROLOL-HCTZ1 TA5 PO; +LEVAQUIN750 MG PO
[2019-03-15 18:23] VITALS: Ht 167.6 cm; Wt 72.7 kg
[2019-03-15] MEDS ORDERED: ISOSORBIDE DINI20 MG PO (18:42)
[2019-03-15 18:51] LABS: BASOPHILS 0.3 % (0-2); HEMATOCRIT 47.3 % (42.0-54.0); HEMOGLOBIN 15.8 g/dL (13.5-17.5); IMMATURE GRANULOCYTES 0.7 % (0-5); LYMPHOCYTES 16.6 % (15-50); MCH 28.7 pg (26.0-34.0); MCHC 33.4 g/dL (31.0-37.0); MONOCYTES 10.2 % (2-11); NEUTROPHILS 71.2 % (40-80); PLATELET COUNT 194 10x3/uL (130-400); RDW 14.7 % (11.5-14.5); WBC 5.8 10x3/uL (4.8-10.8)
[2019-03-15 19:07] LABS: ALBUMIN 2.9 g/dL (3.4-5.0); ALKALINE PHOSPHATASE 69 U/L (46-116); ALT (SGPT) 20 U/L (10-68); BILIRUBIN - TOTAL 0.38 mg/dL (0.2-1.3); CALC OSMOLALITY 280 mosm/kg (275-300); CARBON DIOXIDE 27.9 mmol/L (21.0-32.0); CHLORIDE - SERUM 107 mmol/L (98-107); CREATININE - SERUM 0.9 mg/dL (0.6-1.3); GLUCOSE 94 mg/dL (74-106); POTASSIUM - SERUM 3.3 mmol/L (3.5-5.1); PROTEIN - SERUM 5.7 g/dL (6.4-8.2); SODIUM 141 mmol/L (136-145); UREA NITROGEN 13 mg/dL (7-18); eGFR NON AFRICAN AMERICAN 88 mL/min (90-120)
[2019-03-15 19:10] LABS: AMYLASE - SERUM 82 U/L (25-115); LIPASE 129 U/L (73-393); TROPONIN-I 0.037 ng/mL (0.000-0.060)
[2019-03-15 21:38] LABS: APPEARANCE CLEAR (CLEAR); BILIRUBIN NEGATIVE (NEGATIVE); COLOR YELLOW (YELLOW); GLUCOSE NEGATIVE (NEGATIVE); KETONE NEGATIVE (NEGATIVE); NITRITE NEGATIVE (NEGATIVE); PROTEIN TRACE mg/dL (NEGATIVE); UROBILINOGEN NORMAL (NORMAL)
[2019-03-15 22:40] VITALS: BP 107/70
== END 2019-03-15 23:31 | disposition home or self-care (01) ==
LOC: D.ER 18:21
PROVIDERS: Emergency Medicine
DX: R10.9 Unspecified abdominal pain (principal); R19.7 Diarrhea, unspecified

== ENCOUNTER 2019-05-11 10:26 | Inpatient (IN) | payer MEDICARE, OTHER ==
[~2019-05-11] VITALS: Ht 167.6 cm; Wt 72.0 kg
[~2019-05-11 10:26] MED LIST changes: +ISOSORBIDE DINI20 MG PO
[2019-05-12] MEDS ORDERED: NEOMYCIN SULFA500 MG (15:24)
[2019-05-13] VITALS (10 sets, daily range): BP systolic 90–150; BP diastolic 62–108; BMI 25.8
[2019-05-13 07:27] LABS: HEMATOCRIT 55.8 % (42.0-54.0); HEMOGLOBIN 18.4 g/dL (13.5-17.5); MCH 29.5 pg (26.0-34.0); MCV 89.4 fL (80.0-100.0); MEAN PLATELET VOLUME 9.6 fL (7.4-10.4); RBC 6.24 10x6/uL (4.20-6.10); RDW 14.5 % (11.5-14.5); WBC 10.4 10x3/uL (4.8-10.8)
[2019-05-13 07:43] LABS: ANION GAP 13.6 mmol/L (8-16); CALCIUM 9.5 mg/dL (8.5-10.1); CARBON DIOXIDE 28.7 mmol/L (21.0-32.0); CREATININE - SERUM 1.1 mg/dL (0.6-1.3); POTASSIUM - SERUM 4.3 mmol/L (3.5-5.1)
--- NOTE | 2019-05-13 15:30 | NUR ---
REC'D PT FROM SURGERY, MONITORS ON AND WORKING, VITALS STABLE, FAMILY AT BEDSIDE. CANALES CATH STAT LOCKED IN PLACE GREEN URINE DRAINING. CALL LIGHT WITHIN REACH, SEE FLOW SHEET FOR FURTHER DETAILS. WILL CONTINUE TO OBSERVE.
--- NOTE | 2019-05-13 19:00 | NUR ---
REPORT RECEIVED FROM BERNADINE RN. PT IS LAYING IN BED WITH EYES CLOSED AT THIS TIME. INITIAL ASSESSMENT COMPLETED, SEE FLOWSHEET FOR DETAILS. PT STATES HE IS IN PAIN AND REQUESTED PAIN MEDICATION. MEDICATION WAS GIVEN. NO SIGNS OF ACUTE DISTRESS NOTED. WILL CONTINUE TO MONITOR.
--- NOTE | 2019-05-13 21:00 | NUR ---
PT IS LAYING IN BED WITH EYES CLOSED AT THIS TIME. NO NEEDS VOICED. NO SIGNS OF ACUTE DISRESS. WILL CONTINUE TO MONITOR.
--- NOTE | 2019-05-13 23:00 | NUR ---
REASSESSMENT COMPLETED, SEE FLOWSHEET FOR DETAILS. PT'S DRESSING AT SURGICIAL SITE WAS SATURATED WITH BLOOD, REENFORCED DRESSING WITH 4X4'S AND TAPE. PT STATED HE WAS IN PAIN, MEDICIATIONS GIVEN. NO FURTHER NEEDS VOICED. NO SIGNS OF ACUTE DISTRESS. WILL CONTINUE TO MONITOR.
[2019-05-14] VITALS (17 sets, daily range): BP systolic 99–153; BP diastolic 58–92
--- NOTE | 2019-05-14 01:00 | NUR ---
PT IS LAYING IN BED WITH EYES CLOSED AT THIS TIME. HR ON MONITOR KEEPS GOING INTO A HIGH SINUS TACH(130-160). WHEN I ASKED PT IF HE WAS HURTING HE RESPONDED TO THE AFFIRMATIVE, RATING HIS PAIN AT A 6. IT IS NOT CURRENTLY TIME FOR HIS PAIN MEDICATION. WILL ADMINISTER PRN PAIN MEDICATIONS WHEN ABLE TO. NO FURTHER NEEDS NOTED. NO SIGNS OF ACUTE DISTRESS. WILL CONTINUE TO MONITOR.
--- NOTE | 2019-05-14 03:00 | NUR ---
REASSESSMENT COMPLETED, SEE FLOWSHEET FOR DETAILS. PT IS LAYING IN BED WITH EYES OPEN AT THIS TIME. PRN PAIN MEDICATIONS GIVEN, SEE EMAR FOR DETAILS. PT DENIES FURTHER NEEDS AT THIS TIME. H&H DROPPED SIGNIFICANTLY COMPARED TO PREVIOUS DAY, THERE IS STILL SOME BLEEDING FROM SURGICIAL SITE. WILL CONTINUE TO MONITOR BLOOD LOSS. NO SIGNS OF ACUTE DISTRESS NOTED. WILL CONTINUE TO MONITOR.
[2019-05-14 03:24] LABS: BASOPHILS 0.1 % (0-2); EOSINOPHILS 0 % (0-7); IMMATURE GRANULOCYTES 0.3 % (0-5); MCH 28.8 pg (26.0-34.0); MCHC 31.2 g/dL (31.0-37.0); MEAN PLATELET VOLUME 9.4 fL (7.4-10.4); MONOCYTES 8.1 % (2-11); NEUTROPHILS 86.5 % (40-80); PLATELET COUNT 272 10x3/uL (130-400); RDW 14.9 % (11.5-14.5)
[2019-05-14 03:26] LABS: RBC 4.06 10x6/uL (4.20-6.10); WBC 15.3 10x3/uL (4.8-10.8)
[2019-05-14 03:27] LABS: HEMATOCRIT 37.5 % (42.0-54.0); HEMOGLOBIN 11.7 g/dL (13.5-17.5); MCV 92.4 fL (80.0-100.0)
[2019-05-14 03:55] LABS: ALBUMIN 2.1 g/dL (3.4-5.0); BILIRUBIN - TOTAL 0.51 mg/dL (0.2-1.3); CREATININE - SERUM 1.2 mg/dL (0.6-1.3); MAGNESIUM - SERUM 1.3 mg/dL (1.8-2.4); PHOSPHOROUS 3.6 mg/dL (2.5-4.9); PROTEIN - SERUM 3.9 g/dL (6.4-8.2)
[2019-05-14 03:57] LABS: ANION GAP 19.6 mmol/L (8-16); POTASSIUM - SERUM 3.6 mmol/L (3.5-5.1)
[2019-05-14 03:58] LABS: TROPONIN-I 0.082 ng/mL (0.000-0.060)
--- NOTE | 2019-05-14 05:00 | NUR ---
PT ATTEMPTED TO GET OUT OF BED. ASSISTED PT TO LAY BACK DOWN IN BED. INSTRUCTED PT ON THE NEED TO NOT GET OUT OF BED AT THIS TIME. BED ALARM IS ON. NO FURTHER NEEDS NOTED. WILL CONTINUE TO MONITOR.
--- NOTE | 2019-05-14 08:51 | NUR ---
0700 ASSESSMENT COMPLETE AWAKE IN BED FOLLOWS COMMANDS MARVA WITH BLOODY DRAINAGE SURGICAL DRESSING TO ABDOMIN INTACT WITH BLOODY DRAINAGE NOTED REINFORCED WITH GAUZE
--- NOTE | 2019-05-14 12:01 | NUR ---
0900 DR RIVERA ROUNDING ON PATIENT
--- NOTE | 2019-05-14 12:02 | NUR ---
1100 TOTAL CHG BATH COMPLETE LINENS CHANGED BED ALARM ENGAGED
--- NOTE | 2019-05-14 15:03 | NUR ---
1300 SPOUSE AT BEDSIDE UPDATED AND INFORMED THAT HE MAY BE TRANSFERED TODAY
--- NOTE | 2019-05-14 15:05 | NUR ---
1500 STARTED FURNACE CARETAKER OF DILAUDID STARTED N TRANSSFER ORDERS WRITTEN
--- NOTE | 2019-05-14 16:28 | NUR ---
RECEIVED PT FROM ICU. ALERT AND ORIENTED, EXTREMELY LOWER ELWHA. 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 NO S/S OF ACUTE DISTRESS NOTED. DRESSING TO LEFT LOWER ABDOMEN WITH MARVA DRAIN, DRESSING C/D/I. CANALES CATHETER PRESENT. IV TO LEFT HAND, NS INFUSING @ 100ML/HR. SITE PATENT WITHOUT REDNESS OR SWELLING. IV TO RIGHT HAND, SL. SITE PATENT WITHOUT REDNESS OR SWELLING. PT DENIES ANY NEEDS AT THIS TIME. CALL LIGHT IN REACH. WILL CONTINUE TO MONITOR.
--- NOTE | 2019-05-14 18:21 | NUR ---
RESTING IN BED. NO C/O PAIN. NO S/S OF ACUTE DISTRESS NOTED. CALL LIGHT IN REACH. PT DENIES ANY NEEDS AT THIS TIME.
--- NOTE | 2019-05-14 19:15 | NUR ---
RECEIVED CARE FROM DAY NURSE. LYING IN BED WITH AT SIDE. NO NEEDS VOICED AT THIS TIME. CALL LIGHT AT SIDE. IV INFUSING PER ORDER TO RIGHT FA. IV SL TO RIGHT HAND AND LEFT HAND. CANALES TO GRAVITY.
[2019-05-15 00:46] VITALS: BP 119/67
--- NOTE | 2019-05-15 02:26 | NUR ---
I have reviewed this patient and I concur with the Shift Assessment completed by the Licensed Practical Nurse today this shift.
[2019-05-15 04:53] LABS: BASOPHILS 0.2 % (0-2); EOSINOPHILS 0.4 % (0-7); IMMATURE GRANULOCYTES 0.2 % (0-5); LYMPHOCYTES 11.1 % (15-50); MCH 28.4 pg (26.0-34.0); MCHC 31.6 g/dL (31.0-37.0); MEAN PLATELET VOLUME 9.1 fL (7.4-10.4); MONOCYTES 7.1 % (2-11); RBC 3.28 10x6/uL (4.20-6.10); RDW 14.9 % (11.5-14.5)
[2019-05-15 04:59] LABS: WBC 8.5 10x3/uL (4.8-10.8)
[2019-05-15 05:00] LABS: HEMATOCRIT 29.4 % (42.0-54.0); HEMOGLOBIN 9.3 g/dL (13.5-17.5); MCV 89.6 fL (80.0-100.0); PLATELET COUNT 174 10x3/uL (130-400)
[2019-05-15 05:04] LABS: CALC OSMOLALITY 281 mosm/kg (275-300); CALCIUM 7.4 mg/dL (8.5-10.1); CHLORIDE - SERUM 109 mmol/L (98-107); CREATININE - SERUM 0.9 mg/dL (0.6-1.3); GLUCOSE 85 mg/dL (74-106); SODIUM 142 mmol/L (136-145); UREA NITROGEN 12 mg/dL (7-18); eGFR NON AFRICAN AMERICAN 88 mL/min (90-120)
[2019-05-15 05:05] LABS: CARBON DIOXIDE 26.1 mmol/L (21.0-32.0); MAGNESIUM - SERUM 2.4 mg/dL (1.8-2.4); POTASSIUM - SERUM 4.3 mmol/L (3.5-5.1)
[2019-05-15 05:10] VITALS: BP 133/67
--- NOTE | 2019-05-15 07:35 | NUR ---
PT FOUND ON SITTING IN FLOOR WITH IV TO RIGHT FOREARM PULLED OUT. AT THIS TIME. PT DENIES PAIN AT THIS TIME. ASSISTED TO STANDING THEN SITTING POSITION ONTO BED AT THIS TIME. DR. BACON AWAITING RETURN PHONE CALL. NOTIFIED AT THIS TIME.
--- NOTE | 2019-05-15 09:29 | NUR ---
CALLED WITH NO NEW ORDERS AT THIS TIME. ON THE WAY TO SEE PT.
[2019-05-15 09:36] VITALS: BP 139/69
[2019-05-15 12:34] VITALS: BP 146/79
--- NOTE | 2019-05-15 13:41 | NUR ---
REC'D PT SITTING IN BED RESP EVEN AND UNLABORED IV TO LEFT HAND PATENT AND INTACT AT THIS TIME. PT DENIES NEEDS AT THIS TIME. BED AT LOWEST SETTING CALL LIGHT WITHIN REACH WILL CONTINUE TO MONITOR
[2019-05-15 16:47] VITALS: BP 152/78
--- NOTE | 2019-05-15 19:15 | NUR ---
RECEIVED CARE FROM DAY NURSE. NO NEEDS VOICED AT THIS TIME. CALL LIGHT AT SIDE.
--- NOTE | 2019-05-15 19:35 | NUR ---
IV IN LEFT HAND DISLOADGED WITH TIP INTACT. RESITED TO RIGHT FA. 22 GAUGE WITH GOOD BLOOD RETURN NOTED.
[2019-05-15 20:56] VITALS: BP 136/65
--- NOTE | 2019-05-15 21:45 | NUR ---
MINIMAL ASSIST FROM BED TO CHAIR. FEET ELEVATED. NO OTHER NEEDS VOICED.
--- NOTE | 2019-05-16 | NUR ---
RETURNED TO BED FROM CHAIR WITH MINIMAL ASSIST.
[2019-05-16 01:48] VITALS: BP 142/75
--- NOTE | 2019-05-16 02:15 | NUR ---
OLD DRESSING TO MARVA DRAIN SOILED. REMOVED AND NEW DRESSING APPLIED.
--- NOTE | 2019-05-16 04:35 | NUR ---
UP IN CHAIR WITH ASSISTANCE.
--- NOTE | 2019-05-16 04:59 | NUR ---
AMBULATED TO RESTROOM AND BACK TO BED WITH ASSISTANCE. ONE SMALL SMEAR OF STOOL AT THIS TIME.
[2019-05-16 05:24] VITALS: BP 146/83
[2019-05-16 05:42] LABS: BASOPHILS 0.3 % (0-2); EOSINOPHILS 1.3 % (0-7); HEMATOCRIT 29.2 % (42.0-54.0); HEMOGLOBIN 9.2 g/dL (13.5-17.5); IMMATURE GRANULOCYTES 0.3 % (0-5); LYMPHOCYTES 11.4 % (15-50); MCH 28.4 pg (26.0-34.0); MCHC 31.5 g/dL (31.0-37.0); MCV 90.1 fL (80.0-100.0); MEAN PLATELET VOLUME 9.5 fL (7.4-10.4); MONOCYTES 6.3 % (2-11); NEUTROPHILS 80.4 % (40-80); PLATELET COUNT 198 10x3/uL (130-400); RBC 3.24 10x6/uL (4.20-6.10); RDW 14.7 % (11.5-14.5); WBC 7.1 10x3/uL (4.8-10.8)
[2019-05-16 05:56] LABS: CALCIUM 7.2 mg/dL (8.5-10.1); CARBON DIOXIDE 23.1 mmol/L (21.0-32.0); CHLORIDE - SERUM 110 mmol/L (98-107); CREATININE - SERUM 0.7 mg/dL (0.6-1.3); GLUCOSE 87 mg/dL (74-106); SODIUM 143 mmol/L (136-145); eGFR NON AFRICAN AMERICAN > 90 mL/min (90-120)
[2019-05-16 05:57] LABS: CALC OSMOLALITY 281 mosm/kg (275-300); POTASSIUM - SERUM 3.6 mmol/L (3.5-5.1); UREA NITROGEN 7 mg/dL (7-18)
--- NOTE | 2019-05-16 06:38 | NUR ---
BM X1 MEDIUM SIZE AND LOOSE
--- NOTE | 2019-05-16 07:28 | NUR ---
AWAKE AND ALERT. ORIENTED X3. NO C/O AT THIS TIME. LUNGS HAVE A FEW FAINT CRACKLES, ENCOURAGED TO USE IS WA. WILL MONITOR. SKIN IS INTACT WITHOUT REDNESS EXCEPT INCISION TO LOWER LEFT QUAD WHICH HAS A DRY INTACT DRESSING IN PLACE. THERE ARE ALSO 2 INSERTION SITES, WHICH ARE CLEAN AND DRY. MARVA TO LLQ IS PATENT WITH SEROUS SANGUINESS DRAINAGE NOTED. IV TO RIGHT FOREARM IS PATENT WITHOUT REDNESS AT INSERTION SITE. DENIES NEEDS.
[2019-05-16 07:59] VITALS: BP 144/82
--- NOTE | 2019-05-16 10:00 | NUR ---
PATIENT REPORTED DR SAID HE WAS GOING TO INCREASE HIS DIET. ATE ALL OF CL TRAY SERVED. WILL CHECK WITH .
[2019-05-16 15:55] VITALS: BP 151/85
--- NOTE | 2019-05-16 16:15 | MORECARE ---
CASE MANAGEMENT DISCHARGE SUMMARY PATIENT: LORETTA GUAMAN UNIT: [id number] ADM DATE: 05/13/19 AGE: 73 : 47 SEX: M ROOM/BED: D.2235 AUTHOR: NATALI CORDOVA PHYSICIAN: REFERRING PHYSICIAN: LORETTA FELDER MD DATE OF SERVICE: 05/16/19 Discharge Plan Patient Name: LORETTA GUAMAN [facility] [facility] 1945 Planned Disposition: Inpatient Rehab Anticipated Discharge Date: Discharge Date: Expected LOS: Initial Reviewer: [email or web address] Initial Review Date: 05/16/2019 Generated: 05/16/19 5:15 pm Patient Name: LORETTA GUAMAN Page [id number] at 1615 All edits/amendments must be made on the electronic document DICTATION DATE: 05/16/19 1615 HUMAN RESOURCES TEAM MEMBER: LES 05/16/19 1615 RPT#: [id number] DC DATE: STATUS: ADM IN [facility] [address] [place] [address] END OF REPORT
--- NOTE | 2019-05-16 16:24 | MORECARE ---
CASE MANAGEMENT DISCHARGE SUMMARY PATIENT: LORETTA CONTE UNIT: [id number] ADM DATE: 05/13/19 AGE: 73 : 47 SEX: M ROOM/BED: D.2235 AUTHOR: NATALI CORDOVA PHYSICIAN: REFERRING PHYSICIAN: LORETTA FELDER MD DATE OF SERVICE: 05/16/19 Discharge Plan Patient Name: LORETTA CONTE Facility: [facility]:[place] : 1945 Planned Disposition: Inpatient Rehab Anticipated Discharge Date: Discharge Date: Expected LOS: Initial Reviewer: [email or web address] Initial Review Date: 05/16/2019 Generated: 05/16/19 5:23 pm Comments DCP- Discharge Planning Updated by [id number]: Celeste Newberry on 05/16/19 3:[address] Patient Name: LORETTA CONTE Admission Status: Elective Accout number: [id number] Admission Date: 05-13-2019 : 1945 Admission Diagnosis:DVTRCLI OF INTEST, PART UNSP, W/O PERF OR ABSCESS W/O B Attending: LORETTA FELDER Current LOS: 3 Anticipated DC Date: Planned Disposition: Inpatient Rehab Primary Insurance: [employer] CHOICE PPO MCR ADVANT Discharge Planning Comments: CM met with patient to complete initial dc planning assessment. CM educated patient on the CM role and verbal consent given by patient to complete assessment. Patient lives at home with his , grand daughter and grand daughter's fiphuong?e and her 4 year old son. He has had falls at home and states he needs to go to inpatient rehab prior to going home. CM discussed availability of home health, rehab services, and medical equipment. Patient and his would like an inpatient referral to [facility] for rehab. They do sign a ARAVIND for [facility] if his insurance denies inpatient rehab. His states she has already applied for private care at the health department. She also states that she is buying a wheelchair. CM will continue to follow and will assist as needed with dc plans/needs. Endoscopy Technician: Celeste Newberry DCPIA - Discharge Planning Initial Assessment Updated by [email or web address]: Celeste Newberry on 05/16/19 4:16 pm * Is the patient Alert and Oriented? Yes * How many steps to enter\exit or inside your home? 5/0 * PCP Dr. Viramontes * Pharmacy [facility] in [place] * Preadmission Environment Home with Family * ADLs Partial Dependent * Partial ADLs (Assistance needed) Ambulation * Equipment Bedside Commode Cane Rolling Walker * List name and contact numbers for known caregivers / representatives who currently or will assist patient after discharge: Lou Conte - - [phone] Stacy Gutierrez - DTR - [phone] Safia - grand daughter - [phone] * Verbal permission to speak to the caregivers and representatives has been obtained from the patient. Yes * Community resources currently utilized None * Additional services required to return to the preadmission environment? Yes * Can the patient safely return to the preadmission environment? Yes * Has this patient been hospitalized within the prior 30 days at any hospital? No Coverage Notice Reviewer: [email or web address] Ilene Newberry Notice Issued Date-Time: 05/16/2019 16:21 Notice Type: Patient Choice Letter Notice Delivered To: Family Member Relationship to Patient: Spouse Clinique Counter Manager Name: LOU CONTE Delivery Method: HAND - Hand Delivered Jacinta Days: Prior Verbal Notification: Recipient Understood Notice: Yes Recipient Signature: Yes Med Rec Note Co-signed by Attending: Coverage Notice Comment: ARAVIND FOR [facility] Last DP export: 05/16/19 3:15 p Patient Name: LORETTA CONTE Page [id number] at 1624 All edits/amendments must be made on the electronic document DICTATION DATE: 05/16/191622 STATIONARY ENGINEER REFRIGERATION: LES 05/16/191622 RPT#: [id number] DC DATE: STATUS: ADM IN [facility] [address] [place] [address] END OF REPORT
--- NOTE | 2019-05-16 16:36 | NUR ---
Rehab Prescreening Consult recieved and the chart has been reviewed. He is [employer] managed Medicare which will require a preauth. He has ambulated 250 ft with PT which is to high level for the ARU. Recommend home with HH for continued therapy, or a skilled facility if patient feels he needs an inpatient setting. Zee Jj RN Clinical Liaison, Rehab
--- NOTE | 2019-05-16 19:31 | NUR ---
SAT UP IN CHAIR AND ATE SUPPER. WAS HERE. ENCOURAGED TO USE IS WA. NO CHANGES NOTED. DENIES NEEDS.
--- NOTE | 2019-05-16 19:59 | NUR ---
REC'D. DURING CHGE. OF SHIFT WALKING ROUNDS.IN BED AAO LESLIE MAT IN PLACE FOR SAFETY DUE PREVIOUS FALL ON 05/15/19.MIDLINE INCISION,TWO LAP SITES.AND MARVA DRAIN INTACT TO ABDOMEN.BOWEL SOUNDS AUDIBLE ALL QUAD. DENIES ANY PAIN AT PRESENT TIME WILL CONTINUE TO MONITOR FOR ANY CHGES AND FOLLOW CURRENT PLAN OF CARE.
[2019-05-16 22:28] VITALS: BP 165/90
[2019-05-17] VITALS: BP 150/76
[2019-05-17 06:06] LABS: BASOPHILS 0.4 % (0-2); EOSINOPHILS 2.6 % (0-7); HEMOGLOBIN 10.2 g/dL (13.5-17.5); IMMATURE GRANULOCYTES 0.2 % (0-5); LYMPHOCYTES 15.9 % (15-50); MCH 28.3 pg (26.0-34.0); MCHC 31.9 g/dL (31.0-37.0); MCV 88.9 fL (80.0-100.0); MEAN PLATELET VOLUME 9.2 fL (7.4-10.4); MONOCYTES 7.2 % (2-11); NEUTROPHILS 73.7 % (40-80); RDW 14.5 % (11.5-14.5); WBC 8.2 10x3/uL (4.8-10.8)
[2019-05-17 06:09] LABS: PLATELET COUNT 251 10x3/uL (130-400)
[2019-05-17 06:13] VITALS: BP 140/74
[2019-05-17 06:20] LABS: CALCIUM 8.2 mg/dL (8.5-10.1); CARBON DIOXIDE 27.1 mmol/L (21.0-32.0); CHLORIDE - SERUM 107 mmol/L (98-107); CREATININE - SERUM 0.8 mg/dL (0.6-1.3); GLUCOSE 98 mg/dL (74-106); SODIUM 144 mmol/L (136-145); eGFR NON AFRICAN AMERICAN > 90 mL/min (90-120)
[2019-05-17 06:21] LABS: CALC OSMOLALITY 283 mosm/kg (275-300); UREA NITROGEN 4 mg/dL (7-18)
--- NOTE | 2019-05-17 07:14 | NUR ---
I have reviewed this patient and I concur with the Shift Assessment completed by the Licensed Practical Nurse today this shift.
--- NOTE | 2019-05-17 07:49 | NUR ---
AWAKE AND ALERT. ORIENTED X3. HAVING EMESIS THIS AM. APPROXIMATELY 50 CC GREENISH EMESIS. GIVEN 4MG ZOFRAN SLOW IVP FOR SAME. WILL MONITOR. LUNGS HAVE WHEEZES THROUGHOUT LUNG MADERA. OCCASSIONSL DRY COUGH NOTED. SKIN IS INTACT WITHOUT REDNESS EXCEPT INCISION TO LOWER ABDOMEN WHICH HAS A DRY INTACT DRESSING IN PLACE. 2 SMALL LAP SITES NOTED TO ABDOMEN. LINENS CHANGED AND SKIN CARE PER STAFF. IV TO RIGHT FOREARM IS PATENT WITHOUT REDNESS AT INSERTION SITE. DENIES FURTHER NEEDS.
--- NOTE | 2019-05-17 08:00 | NUR ---
DR FELDER NOTIFIED OF EMESIS. NEW ORDERS RECEIVED.
[2019-05-17 08:55] VITALS: BP 160/92
--- NOTE | 2019-05-17 09:30 | NUR ---
IV TO RIGHT FOREARM LEAKING. D/C WITH CATHETER INTACT. RESITED TO RIGHT AC WITH 22G AFTER 2 ATTEMPTS.
[2019-05-17 10:10] LABS: MAGNESIUM - SERUM 1.7 mg/dL (1.8-2.4)
[2019-05-17 10:23] LABS: PHOSPHOROUS 1.5 mg/dL (2.5-4.9)
--- NOTE | 2019-05-17 11:00 | NUR ---
HAD APPROXIMATELY 50 CC OF GREENISH EMESIS. DENIES NAUSEA. WILL MONITOR. SKIN CARE AND LINENS CHANGED PER STAFF.
[2019-05-17 12:15] VITALS: BP 174/85
--- NOTE | 2019-05-17 13:51 | NUR ---
OT NOTE: PT REPORTED FEELING NAUSEOUS BUT AGREEABLE TO PARTICIPATE IN THERAPY. BED MOB WITH MOD ASSIST. PT IS VERY WEAK. SIT TO STAND WITH MIN ASSIST AND USE OF WALKER. AMB X APPROX 65-75 FT WITH MIN ASSIST. TRANSFERRED TO CHAIR WITH MIN ASSIST. SIMPLE GROOMING WITH WASHCLOTH AND SET UP; MIN ASSIST TO DERRELL CLEAN GOWN. RAIMUNDO MILLER, OTR/L
--- NOTE | 2019-05-17 13:54 | NUR ---
OFF UNIT VIA BED FOR CT SCAN
[2019-05-17 16:20] VITALS: BP 139/70
--- NOTE | 2019-05-17 17:27 | NUR ---
DRESSING TO MARVA SITE HAS LEAKED THROUGH. CHANGED PER STAFF. REQUESTED AND GIVNE ONE HYDROCODONE PO FOR C/O ABDOMINAL PAIN LEVEL 7. WILL MONITOR.
--- NOTE | 2019-05-17 17:43 | OP ---
PATIENT NAME: LORETTA GUAMAN MEDICAL RECORD: [id number] :[birth year] LOCATION:D.MS [id number] ADMISSION DATE:05/13/19 SURGEON: LORETTA FELDER MD DATE OF OPERATION: 05/13/2019 PREOPERATIVE DIAGNOSIS: History of perforated sigmoid diverticulitis. POSTOPERATIVE DIAGNOSES: History of perforated sigmoid diverticulitis with active acute diverticulitis present. PROCEDURE: Hand-assisted laparoscopic surgery - sigmoid colectomy. SURGEON: Loretta Felder MD SINTER FEEDER: None. BLOOD LOSS: Please see the anesthesia sheet. DRAINS: Times one 10-Haitian round fully fluted closed suction drainage system. OPERATIVE FINDINGS: The patient had acute diverticulitis still present. Previously on CT scan, the inflammation and free air had been called acute appendicitis with perforation. 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 The risks, possible complications, and alternatives to the procedure were explained to the patient. He elects to proceed. Discussion specifically included, but was not limited to, bleeding requiring emergency reoperation, infection, colostomy formation, and the possible need for a revisionary procedure. OPERATIVE COURSE: The patient was conveyed to the operating room electively on 05/13/2019. General anesthesia was induced by the anesthesia staff. The patient was positioned supine. The abdomen and genitals were sterilely prepped and draped. A transverse incision was accomplished 2 fingerbreadths cephalad to the pubic symphysis. Sharp dissection was carried down through skin and subcutaneous tissue as well as Julieta fascia. I incised the anterior fascia. I the rectus muscles. I entered the peritoneal cavity sharply and I placed some stay sutures of #1 Vicryl on either side of the peritoneum. The Jostin retractor was placed. On top of the Jostin retractor, the Gelport was placed. Through the Gelport, a 12-mm trocar was placed and the abdomen was insufflated through this 12-mm trocar. I then advanced a television camera. I visualized internally that there were some adhesions in the epigastrium. A 5-mm trocar was placed far laterally in the left lower quadrant. Another 5-mm trocar was placed in the left upper quadrant. Another 5-mm trocar was placed in the epigastrium. I took down some of the adhesions in the epigastrium. This was done with the Harmonic scalpel. At no time was there any apparent injury to the bowels. I then took my Harmonic scalpel and with the hand-assisted technique, I took down the left white line of Toldt. I then took down the intersigmoid fossa. This freed up some of the left colon. The ureter was identified and was protected throughout the entire operation. I then took the top off of the Gelport. I exteriorized the sigmoid colon. A OPERATIVE REPORT [id number] LORETTA GUAMAN window was created in the mesorectum. I stapled across the junction of the sigmoid colon and the rectum with a NAVJOT-75 stapler. I then chose the proximal extent of my resection to be the junction of the descending and sigmoid colons. A window was created in the mesocolon here and I stapled across the colon with a NAVJOT-75 stapler. The interpose mesentery was taken down with the Super Jaw EnSeal device. The specimen was sent to pathology. I placed the descending colon and the rectum into apposition side by side. A small colotomy and a small proctotomy were accomplished. Anvils of the NAVJOT-75 stapler were advanced and fired. I oversewed the posterior staple line internally with a running 4-0 Monocryl. I then closed the resulting large bowel defect with a single firing of the TA-60 stapler. I irrigated with normal saline and aspirated. There was no bleeding. I then reperitonealized with a running #1 Vicryl. I brought the rectus muscles together with interrupted horizontal mattress #1 Vicryls. The anterior fascia was closed with running #1 Vicryls. Julieta's fascia was approximated with interrupted 3-0 Vicryls. The subdermis was approximated with interrupted 3-0 Vicryls. The skin was approximated with a running intracuticular 3-0 Vicryl. The 5-mm trocars were then addressed. In the left lower quadrant, I advanced a 10-Haitian round closed suction drain through this trocar and then removed the trocar. The other trocars were removed as well. All 3 trocar sites were closed with interrupted intracuticular 3-0 Vicryls. The drain was sutured to the skin with a 4-0 nylon. Sterile dressings were applied. The patient was then extubated and conveyed to the post-anesthesia care unit, where he was in stable condition. 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 He does not have an epidural catheter. Preoperatively, he told us that he had been taking Plavix. We tried to get a hold of his for about an hour. We were told that she had left the building and was eating. When we finally got hold of her, she states that she was at the bank and she would come back to the hospital. A nurse talked to the people in pre-assessment and they stated that he has been off his Plavix since Thursday. The day of the operation was Thursday. When I was able to talk to the patient's , she stated that the patient had been off Plavix since Thursday. I told her that we would have to cancel the operation. Then she said, "Oh no, he has been off Plavix since Thursday before last." So really I think that both of them likely are unreliable historians. For that reason, he needs to be observed for bleeding in the intensive care unit. TRANSINT:[id number] Voice Confirmation ID: [id number] DOCUMENT ID: [id number] 05/17/2019 Edited for identifier horse error, dmm. LORETTA FELDER MD at 1743 CC: [id number] DICTATION DATE: 05/14/19915 CASH REGISTER MECHANIC: 05/14/19 0946 ADM [facility] [address] [place] [address]
--- NOTE | 2019-05-17 18:35 | NUR ---
WAS HERE WHEN DR. FELDER CAME IN AND TALKED WITH THEM ABOUT NO SURGERY AT THIS TIME. ALL QUESTIONS WERE ANSWERED. DENIES NEEDS. NO CHANGES NOTED.
--- NOTE | 2019-05-17 20:00 | NUR ---
A/O WITH NO SIGNS OF ACUTE DISTRESS. IV TO THE RT FOREARM WITH NO REDNESS OR SWELLING NOTED. TWO LAP SITES NOTED TO THE ABDOMEN AND MARVA DRAIN NOTED TO THE LLQ. BLOODY DRAINAGE NOTED TO MARVA DRAIN. PT COMPLAINING OF NAUSEA. LESLIE ALARM ON. DENIES FURTHER NEEDS AT THIS TIME. CONTINUE WITH PLAN OF CARE.
[2019-05-17 22:21] VITALS: BP 120/62
[2019-05-18 01:50] VITALS: BP 130/70
[2019-05-18 04:58] VITALS: BP 140/74
[2019-05-18 06:23] LABS: BASOPHILS 0.3 % (0-2); EOSINOPHILS 4.5 % (0-7); HEMOGLOBIN 9.4 g/dL (13.5-17.5); IMMATURE GRANULOCYTES 0.3 % (0-5); LYMPHOCYTES 15.3 % (15-50); MCH 27.9 pg (26.0-34.0); MCHC 31.3 g/dL (31.0-37.0); MEAN PLATELET VOLUME 9.2 fL (7.4-10.4); MONOCYTES 11.3 % (2-11); NEUTROPHILS 68.3 % (40-80); PLATELET COUNT 244 10x3/uL (130-400); RBC 3.37 10x6/uL (4.20-6.10); RDW 14.5 % (11.5-14.5); WBC 7.5 10x3/uL (4.8-10.8)
[2019-05-18 06:42] LABS: ALBUMIN 2.2 g/dL (3.4-5.0); ALKALINE PHOSPHATASE 49 U/L (46-116); ALT (SGPT) 16 U/L (10-68); BILIRUBIN - TOTAL 1.48 mg/dL (0.2-1.3); CALC OSMOLALITY 284 mosm/kg (275-300); CALCIUM 7.3 mg/dL (8.5-10.1); CHLORIDE - SERUM 108 mmol/L (98-107); CREATININE - SERUM 0.7 mg/dL (0.6-1.3); GLUCOSE 79 mg/dL (74-106); MAGNESIUM - SERUM 1.7 mg/dL (1.8-2.4); PROTEIN - SERUM 4.6 g/dL (6.4-8.2); SODIUM 145 mmol/L (136-145); TROPONIN-I 0.039 ng/mL (0.000-0.060); UREA NITROGEN 5 mg/dL (7-18); eGFR NON AFRICAN AMERICAN > 90 mL/min (90-120)
[2019-05-18 06:43] LABS: PHOSPHOROUS 2.1 mg/dL (2.5-4.9)
--- NOTE | 2019-05-18 08:01 | NUR ---
ALERT AND ORIENTED. LUNGS WITH BILATERAL WHEEZES. HEART SOUNDS S1 AND S2 HEARD IN ALL MADERA. BOWEL SOUNDS ACTIVE X 4. BRUISING TO ABD AND RIGHT ARM. LAP SITES X 2 TO ABD. MARVA TO LLQ PATENT. IV TO RFA PATENT WITHOUT REDNESS. DENIES PAIN. DENIES NEEDS. BED LOW. FALL PRECAUTIONS IN PLACE. CALL FULLER AND PERSONAL ITEMS IN REACH. WILL CONTINUE TO MONITOR.
[2019-05-18 09:03] VITALS: BP 133/70
--- NOTE | 2019-05-18 09:35 | MORECARE ---
CASE MANAGEMENT DISCHARGE SUMMARY PATIENT: LORETTA CONTE UNIT: [id number] ADM DATE: 05/13/19 AGE: 73 : [birth year] SEX: M ROOM/BED: D.2235 AUTHOR: ART,DOC PHYSICIAN: REFERRING PHYSICIAN: LORETTA FELDER MD DATE OF SERVICE: 05/18/19 Discharge Plan Patient Name: LORETTA CONTE Facility: [facility]:[place] : 1945 Planned Disposition: Inpatient Rehab Anticipated Discharge Date: Discharge Date: Expected LOS: Initial Reviewer: [email or web address] Initial Review Date: 05/16/2019 Generated: 05/18/19 10:34 am Comments DCP- Discharge Planning Updated by [email or web address]: Celeste Newberry on 05/18/19 8:[address] Spoke with today and informed that inpatient rehab did not feel he was a candidate for their program. She states she would like me to refer him to [facility] instead of [facility] as a first choice. I informed Jacquie Gold (liason for [facility]) and clinical faxed. CM will continue to follow and assist with discharge planning/needs. DCP- Discharge Planning Updated by [email or web address]: Celeste Newberry on 05/16/19 3:[address] Patient Name: LORETTA CONTE Admission Status: Elective Accout number: [id number] Admission Date: 05-13-2019 : 1945 Admission Diagnosis:DVTRCLI OF INTEST, PART UNSP, W/O PERF OR ABSCESS W/O B Attending: LORETTA FELDER Current LOS: 3 Anticipated DC Date: Planned Disposition: Inpatient Rehab Primary Insurance: [employer] CHOICE PPO MCR ADVANT Discharge Planning Comments: CM met with patient to complete initial dc planning assessment. CM educated patient on the CM role and verbal consent given by patient to complete assessment. Patient lives at home with his , grand daughter and grand daughter's fianc?e and her 4 year old son. He has had falls at home and states he needs to go to inpatient rehab prior to going home. CM discussed availability of home health, rehab services, and medical equipment. Patient and his would like an inpatient referral to [facility] for rehab. They do sign a ARAVIND for [facility] if his insurance denies inpatient rehab. His states she has already applied for private care at the health department. She also states that she is buying a wheelchair. CM will continue to follow and will assist as needed with dc plans/needs. It Project Manager: Celeste Phillipsjarrod DCPIA - Discharge Planning Initial Assessment Updated by [id number]: Celeste Newberry on 05/16/19 4:16 pm * Is the patient Alert and Oriented? Yes * How many steps to enter\exit or inside your home? 5/0 * PCP Dr. Viramontes * Pharmacy [facility] in [place] * Preadmission Environment Home with Family * ADLs Partial Dependent * Partial ADLs (Assistance needed) Ambulation * Equipment Bedside Commode Cane Rolling Walker * List name and contact numbers for known caregivers / representatives who currently or will assist patient after discharge: Lou Conte - - [phone] Stacy Gutierrez - DTR - [phone] Safia - grand daughter - [phone] * Verbal permission to speak to the caregivers and representatives has been obtained from the patient. Yes * Community resources currently utilized None * Additional services required to return to the preadmission environment? Yes * Can the patient safely return to the preadmission environment? Yes * Has this patient been hospitalized within the prior 30 days at any hospital? No Coverage Notice Reviewer: [email or web address] - Celeste Coni Notice Issued Date-Time: 05/16/2019 16:21 Notice Type: Patient Choice Letter Notice Delivered To: Family Member Relationship to Patient: Spouse Photographer Lithographic Name: LOU CONTE Delivery Method: HAND - Hand Delivered Jacinta Days: Prior Verbal Notification: Recipient Understood Notice: Yes Recipient Signature: Yes Med Rec Note Co-signed by Attending: Coverage Notice Comment: ARAVIND FOR [facility] Last DP export: 05/16/19 3:24 p Patient Name: LORETTA CONTE Page [id number] at 0935 All edits/amendments must be made on the electronic document DICTATION DATE: 05/18/19933 SLASHER RUNNER: LES 05/18/19933 RPT#: [id number] DC DATE: STATUS: ADM IN [facility] [address] [place] [address] END OF REPORT
--- NOTE | 2019-05-18 09:43 | MORECARE ---
CASE MANAGEMENT DISCHARGE SUMMARY PATIENT: LORETTA CONTE UNIT: [id number] ADM DATE: 05/13/19 AGE: 73 : [birth year] SEX: M ROOM/BED: D.2235 AUTHOR: ART,DOC PHYSICIAN: REFERRING PHYSICIAN: LORETTA FELDER MD DATE OF SERVICE: 05/18/19 Discharge Plan Patient Name: LORETTA CONTE Facility: [facility]:[place] : 1945 Planned Disposition: Inpatient Rehab Anticipated Discharge Date: Discharge Date: Expected LOS: Initial Reviewer: [email or web address] Initial Review Date: 05/16/2019 Generated: 05/18/19 10:43 am Comments DCP- Discharge Planning Updated by [email or web address]: Celeste Newberry on 05/18/19 8:[address] Spoke with today and informed that inpatient rehab did not feel he was a candidate for their program. She states she would like me to refer him to [facility] instead of [facility] as a first choice. I informed Jacquie Gold (liason for [facility]) and clinical faxed. CM will continue to follow and assist with discharge planning/needs. 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 CM educated patient on the CM role and verbal consent given by patient to complete assessment. Patient lives at home with his , grand daughter and grand daughter's fianc?e and her 4 year old son. He has had falls at home and states he needs to go to inpatient rehab prior to going home. CM discussed availability of home health, rehab services, and medical equipment. Patient and his would like an inpatient referral to [facility] for rehab. They do sign a ARAVIND for [facility] if his insurance denies inpatient rehab. His states she has already applied for [facility] care [facility]. She also states that she is buying a wheelchair. CM will continue to follow and will assist as needed with dc plans/needs. Automobile Lights Assembler: Celeste Newberry DCPIA - Discharge Planning Initial Assessment Updated by [email or web address]: Celeste Newberry on 05/16/19 4:16 pm * Is the patient Alert and Oriented? Yes * How many steps to enter\exit or inside your home? 5/0 * PCP Dr. Viramontes * Pharmacy [facility] in [place] * Preadmission Environment Home with Family * ADLs Partial Dependent * Partial ADLs (Assistance needed) Ambulation * Equipment Bedside Commode Cane Rolling Walker * List name and contact numbers for known caregivers / representatives who currently or will assist patient after discharge: Lou Conte - - [phone] Stacy Gutierrez - DTR - [phone] Safia - grand daughter - [phone] * Verbal permission to speak to the caregivers and representatives has been obtained from the patient. Yes * Community resources currently utilized None * Additional services required to return to the preadmission environment? Yes * Can the patient safely return to the preadmission environment? Yes * Has this patient been hospitalized within the prior 30 days at any hospital? No External Providers External Provider: [facility] Next Contact Date: Service Request Date: Service Type: Resolution: Reviewer: Comments: Coverage Notice Reviewer: [email or web address] - Celeste Coni Notice Issued Date-Time: 05/16/2019 16:21 Notice Type: Patient Choice Letter Notice Delivered To: Family Member Relationship to Patient: Spouse A Operator Name: LOU CONTE Delivery Method: HAND - Hand Delivered Jacinta Days: Prior Verbal Notification: Recipient Understood Notice: Yes Recipient Signature: Yes Med Rec Note Co-signed by Attending: Coverage Notice Comment: ARAVIND FOR [facility] Last DP export: 05/18/19 8:35 a Patient Name: LORETTA CONTE Page [phone] at 0943 All edits/amendments must be made on the electronic document DICTATION DATE: 05/18/19 0942 CORE FITTER: LES 05/18/19 0942 RPT#: [id number] DC DATE: STATUS: ADM IN [facility] [address] [place] [address] END OF REPORT
--- NOTE | 2019-05-18 10:08 | NUR ---
RESTING IN BED. AT BEDSIDE. DENIES NEEDS. WILL CONTINUE TO MONITOR.
--- NOTE | 2019-05-18 10:32 | NUR ---
SEIZURE PRECAUTIONS INITIATED. SIDE RAILS PADDED. STATES NO SEIZURES SINCE CHILDHOOD. SPOKE WITH CANDELARIA, VOLUNTEER ASSISTANT, ABOUT GETTING TELEMETRY FOR PATIENT. STATES WILL CHECK ORDERS, NOT SURE IF HAS ENOUGH TELEMETRY MONITORS. NOTIFIED THAT PATIENT HAS HX OF HEART ISSUES AND STENTS. WILL CHECK BACK LATER. WILL CONTINUE TO MONITOR.
--- NOTE | 2019-05-18 11:08 | NUR ---
JACKSPOOLER PLACED ON PATIENT.
[2019-05-18 12:56] VITALS: BP 142/58
--- NOTE | 2019-05-18 16:05 | NUR ---
PATIENT SLEEPING. AT BEDSIDE. WILL CONTINUE TO MONITOR.
[2019-05-18 16:33] VITALS: BP 123/71
--- NOTE | 2019-05-18 16:35 | NUR ---
OT NOTE: PERFORMED BED MOB WITH MIN ASSIST. AMB IN ROOM WITH MIN ASSIST. TOILETING WITH MIN ASSIST. AMB INTO HALLWAY TO IMPROVE FUNCTIONAL ENDURANCE. STRENGTHENING EXS WITH MOD REST BREAKS. RAIMUNDO MILLER OTR/L
[2019-05-18 20:00] VITALS: BP 137/66
[2019-05-19 04:00] VITALS: BP 140/75
[2019-05-19 05:43] LABS: ALKALINE PHOSPHATASE 49 U/L (46-116); ALT (SGPT) 16 U/L (10-68); BILIRUBIN - TOTAL 0.95 mg/dL (0.2-1.3); CALC OSMOLALITY 283 mosm/kg (275-300); CALCIUM 7.4 mg/dL (8.5-10.1); CARBON DIOXIDE 26.9 mmol/L (21.0-32.0); CHLORIDE - SERUM 107 mmol/L (98-107); CREATININE - SERUM 0.6 mg/dL (0.6-1.3); GLUCOSE 72 mg/dL (74-106); POTASSIUM - SERUM 3.4 mmol/L (3.5-5.1); PROTEIN - SERUM 5.2 g/dL (6.4-8.2); SODIUM 144 mmol/L (136-145); UREA NITROGEN 6 mg/dL (7-18); eGFR NON AFRICAN AMERICAN > 90 mL/min (90-120)
[2019-05-19 06:58] LABS: BASOPHILS 0.1 % (0-2); EOSINOPHILS 4.5 % (0-7); HEMATOCRIT 29.6 % (42.0-54.0); HEMOGLOBIN 9.4 g/dL (13.5-17.5); IMMATURE GRANULOCYTES 0.5 % (0-5); LYMPHOCYTES 11.9 % (15-50); MCH 28.1 pg (26.0-34.0); MCHC 31.8 g/dL (31.0-37.0); MCV 88.4 fL (80.0-100.0); MEAN PLATELET VOLUME 8.8 fL (7.4-10.4); MONOCYTES 8.7 % (2-11); NEUTROPHILS 74.3 % (40-80); PLATELET COUNT 226 10x3/uL (130-400); RBC 3.35 10x6/uL (4.20-6.10); RDW 14.6 % (11.5-14.5); WBC 8.4 10x3/uL (4.8-10.8)
--- NOTE | 2019-05-19 07:17 | NUR ---
ALERT AND ORIENTED. LUNGS WITH WHEEZES TO YESSY LOBES. HEART SOUNDS S1 AND S2 HEARD IN ALL MADERA. TELEMETRY IN PLACE. SINUS RYTHM ON MONITOR. BOWEL SOUNDS ACTIVE X 4. BRUSING TO RIGHT HAND AND ABD NOTED. LAP SITES X 2 TO ABD. IV TO RFA PATENT WITHOUT REDNESS. DENIES PAIN. DENIES NEEDS. BED LOW. FALL PRECAUTIONS IN PLACE. CALL FULLER AND PERSONAL ITEMS IN REACH. WILL CONTINUE TO MONITOR.
[2019-05-19 09:13] VITALS: BP 139/71
--- NOTE | 2019-05-19 09:30 | NUR ---
PATIENT SLEEPING. WILL CONTINUE TO MONITOR.
--- NOTE | 2019-05-19 11:33 | NUR ---
ATTEMPTED TO CALL BACK . NO ANSWER.
[2019-05-19 12:23] VITALS: BP 134/56
[2019-05-19 12:39] VITALS: Ht 167.6 cm; Wt 72.0 kg
--- NOTE | 2019-05-19 14:19 | NUR ---
RESTING IN BED. DENIES NEEDS. WILL CONTINUE TO MONITOR.
--- NOTE | 2019-05-19 15:02 | NUR ---
PT REQUESTING NPO STATUS BE LIFTED AND REGULAR DIET INITIATED. DR RIVERA PAGED.
--- NOTE | 2019-05-19 15:15 | NUR ---
SPOKE WITH DR RIVERA WHO STATES PATIENT TO REMAIN NPO. STATES HAD CONVERSATION WITH PATIENT ABOUT THIS. NURSE SPOKE WITH PATIENT TO LET KNOW IS TO REMAIN NPO. VERBALIZED UNDERSTANDING.
--- NOTE | 2019-05-19 16:45 | NUR ---
RESTING IN BED. DENIES NEEDS. WILL CONTINUE TO MONITOR.
[2019-05-19 17:07] VITALS: BP 125/55
--- NOTE | 2019-05-19 18:45 | NUR ---
RESTING IN BED. DENIES NEEDS. BED LOW. FALL PRECAUTIONS IN PLACE. CALL FULLER AND PERSONAL ITEMS IN REACH.
[2019-05-19 20:00] VITALS: BP 126/63
--- NOTE | 2019-05-19 21:11 | NUR ---
LYING QUIELTY WITH NO COMPLAINTS VOICED. RESP EVEN AND ULABORED. NO DISTRESS NOTED. MARVA DRAIN INTACT TO LEFT ABD AND COMPRESSED. LAP SITES WITHOUT DRAINAGE NOTED. CL IN REACH
[2019-05-20] VITALS: BP 129/61
--- NOTE | 2019-05-20 01:10 | NUR ---
I have reviewed this patient and I concur with the Shift Assessment completed by the Licensed Practical Nurse today this shift.
[2019-05-20 06:26] VITALS: BP 140/70
[2019-05-20 07:25] LABS: BASOPHILS 0.3 % (0-2); EOSINOPHILS 5.7 % (0-7); HEMATOCRIT 30.8 % (42.0-54.0); HEMOGLOBIN 9.7 g/dL (13.5-17.5); IMMATURE GRANULOCYTES 0.5 % (0-5); LYMPHOCYTES 13.4 % (15-50); MCHC 31.5 g/dL (31.0-37.0); MCV 88.8 fL (80.0-100.0); MONOCYTES 7.5 % (2-11); NEUTROPHILS 72.6 % (40-80); RBC 3.47 10x6/uL (4.20-6.10); RDW 14.8 % (11.5-14.5); WBC 7.6 10x3/uL (4.8-10.8)
[2019-05-20 07:29] LABS: PLATELET COUNT 334 10x3/uL (130-400)
[2019-05-20 07:42] LABS: ALBUMIN 2.3 g/dL (3.4-5.0); ALKALINE PHOSPHATASE 54 U/L (46-116); ALT (SGPT) 16 U/L (10-68); BILIRUBIN - TOTAL 1.29 mg/dL (0.2-1.3); CALC OSMOLALITY 279 mosm/kg (275-300); CALCIUM 7.5 mg/dL (8.5-10.1); CARBON DIOXIDE 26.2 mmol/L (21.0-32.0); CHLORIDE - SERUM 106 mmol/L (98-107); CREATININE - SERUM 0.6 mg/dL (0.6-1.3); GLUCOSE 66 mg/dL (74-106); POTASSIUM - SERUM 3.7 mmol/L (3.5-5.1); SODIUM 143 mmol/L (136-145); UREA NITROGEN 5 mg/dL (7-18); eGFR NON AFRICAN AMERICAN > 90 mL/min (90-120)
--- NOTE | 2019-05-20 08:00 | NUR ---
ASSESSMENT PER FLOW SHEET. PT IS WITHOUT DISTRESS AT PRESENT. CALL LIGHT IN REACH.
[2019-05-20 08:44] VITALS: BP 132/63
--- NOTE | 2019-05-20 13:02 | NUR ---
NUTRITION F/U PT REMAINS NPO AWAITING BOWEL FUNCTION. WILL CONTINUE TO MONITOR DIET ADVANCEMENT, PT PROGRESS. RD FOLLOWING
[2019-05-20 14:33] VITALS: BP 130/50
--- NOTE | 2019-05-20 16:22 | NUR ---
ASSISTED UP TO BEDSIDE.HE IS WATING ON DINNER TRAY.WANTS FOOD.MONITOR
--- NOTE | 2019-05-20 16:24 | NUR ---
CALL FROM AGAIN THIS AFTERNOON. PASSWORD CONFIRMED AGAIN.UPDATE GIVEN
[2019-05-20 18:02] VITALS: BP 150/67
--- NOTE | 2019-05-20 18:27 | NUR ---
TOLERATED CLD.REMAINS WITHOUT CHANGE.CONT PLAN OF CARE
[2019-05-20 20:00] VITALS: BP 116/56
[2019-05-21] VITALS: BP 147/70
[2019-05-21 03:57] VITALS: BP 125/59
[2019-05-21 05:37] LABS: BASOPHILS 0.2 % (0-2); EOSINOPHILS 5.8 % (0-7); HEMATOCRIT 29.3 % (42.0-54.0); HEMOGLOBIN 9.4 g/dL (13.5-17.5); IMMATURE GRANULOCYTES 0.3 % (0-5); LYMPHOCYTES 18.9 % (15-50); MCH 27.9 pg (26.0-34.0); MCHC 32.1 g/dL (31.0-37.0); MCV 86.9 fL (80.0-100.0); MEAN PLATELET VOLUME 8.7 fL (7.4-10.4); MONOCYTES 8.2 % (2-11); NEUTROPHILS 66.6 % (40-80); PLATELET COUNT 337 10x3/uL (130-400); RBC 3.37 10x6/uL (4.20-6.10); RDW 14.7 % (11.5-14.5); WBC 6.6 10x3/uL (4.8-10.8)
--- NOTE | 2019-05-21 06:00 | NUR ---
ASSISTED PT BACK FROM BATHROOM. MARVA DRESSING LEAKING AT SITE. CHANGED DRESSING AND COMPRESSED BULB. NO OTHER NEEDS. WILL CONTINUE TO MONITOR.
[2019-05-21 06:06] LABS: ALBUMIN 2.2 g/dL (3.4-5.0); ALKALINE PHOSPHATASE 49 U/L (46-116); ALT (SGPT) 14 U/L (10-68); BILIRUBIN - TOTAL 1.11 mg/dL (0.2-1.3); CALCIUM 7.6 mg/dL (8.5-10.1); CARBON DIOXIDE 28.1 mmol/L (21.0-32.0); CHLORIDE - SERUM 105 mmol/L (98-107); CREATININE - SERUM 0.5 mg/dL (0.6-1.3); GLUCOSE 90 mg/dL (74-106); PROTEIN - SERUM 5.2 g/dL (6.4-8.2); SODIUM 143 mmol/L (136-145); eGFR NON AFRICAN AMERICAN > 90 mL/min (90-120)
[2019-05-21 06:11] LABS: CALC OSMOLALITY 281 mosm/kg (275-300); UREA NITROGEN 3 mg/dL (7-18)
[2019-05-21 06:15] LABS: POTASSIUM - SERUM 2.6 mmol/L (3.5-5.1)
[2019-05-21 08:18] VITALS: BP 111/47
--- NOTE | 2019-05-21 08:27 | NUR ---
AWAKE AND ALERT. ORIENTED X3. NO C/O AT THIS TIME. LUNGS HAVE FAINT CRACKLES NOTED THROUGHOUT, PATIENT REPORTS PRODUCTIVE COUGH WITH WHITISH SPUTUM. ENCOURAGED TO USE IS INSTRUCTED. IV TO RIGHT FOREARM IS PATENT WTIHOUT REDNESS AT INSERTION SITE. SKIN IS INTACT WITHOUT REDNESS EXCPET 2 SMALL ABDOMINAL INSERTION SITES WHICH ARE CLEAN AND DRY WITHOUT SIGNS OF INFECTION. REPORTS WATERY STOOLS. DENIES NEEDS. MARVA PATENT WITH SEROUS SANGUINESS DRAINAGE NOTED.
--- NOTE | 2019-05-21 10:00 | NUR ---
ATE ALL OF CL BREAKFAST. TOOK AM MEDS WITHOUT DIFFICULTY.
--- NOTE | 2019-05-21 11:00 | NUR ---
UP TO BR WITH ONE PERSON MIN ASSIST. HAD MODERATE AMOUNT OF LOOSE GREENISH DIARRHEA. SKIN CARE PER SELF. AMBULATED IN HALLWAY WITH PT DID OVER 100 FEET SBA. UP IN CHAIR AFTER AMBULATION.
[2019-05-21 12:37] VITALS: BP 140/71
--- NOTE | 2019-05-21 13:00 | NUR ---
ATE ALL OF CL LUNCH TRAY. DENIES NEEDS.
--- NOTE | 2019-05-21 15:00 | NUR ---
UP TO BR WITH ONE PERSON MIN ASSIST. VOIDED WITHOUT DIFFICULTY.
[2019-05-21 15:31] LABS: MAGNESIUM - SERUM 1.6 mg/dL (1.8-2.4)
[2019-05-21 15:36] LABS: POTASSIUM - SERUM 2.9 mmol/L (3.5-5.1)
[2019-05-21 17:00] VITALS: BP 135/69
--- NOTE | 2019-05-21 17:00 | NUR ---
VOIDED 300CC CLEAR YELLOW URINE IN URINAL. DENIES NEEDS.
--- NOTE | 2019-05-21 17:30 | NUR ---
REQUESTED AND GIVNE ONE HYDROCODONE PO FOR C/O ABDOMINAL PAIN LEVEL 6. WILL MONITOR.
[2019-05-21 20:01] VITALS: BP 137/72
[2019-05-22] VITALS: BP 113/52
[2019-05-22 04:00] VITALS: BP 134/62
[2019-05-22 05:00] LABS: BASOPHILS 0.3 % (0-2); EOSINOPHILS 5.6 % (0-7); HEMATOCRIT 32.8 % (42.0-54.0); HEMOGLOBIN 10.4 g/dL (13.5-17.5); IMMATURE GRANULOCYTES 0.6 % (0-5); LYMPHOCYTES 16.7 % (15-50); MCH 27.6 pg (26.0-34.0); MCHC 31.7 g/dL (31.0-37.0); MEAN PLATELET VOLUME 8.7 fL (7.4-10.4); MONOCYTES 6.9 % (2-11); NEUTROPHILS 69.9 % (40-80); PLATELET COUNT 387 10x3/uL (130-400); RBC 3.77 10x6/uL (4.20-6.10); RDW 14.6 % (11.5-14.5); WBC 6.8 10x3/uL (4.8-10.8)
[2019-05-22 05:23] LABS: ALBUMIN 2.5 g/dL (3.4-5.0); ALKALINE PHOSPHATASE 57 U/L (46-116); ALT (SGPT) 17 U/L (10-68); BILIRUBIN - TOTAL 0.91 mg/dL (0.2-1.3); CALCIUM 8.1 mg/dL (8.5-10.1); CARBON DIOXIDE 29.4 mmol/L (21.0-32.0); CHLORIDE - SERUM 105 mmol/L (98-107); GLUCOSE 102 mg/dL (74-106); POTASSIUM - SERUM 3.3 mmol/L (3.5-5.1); PROTEIN - SERUM 5.7 g/dL (6.4-8.2); SODIUM 143 mmol/L (136-145)
[2019-05-22 05:24] LABS: CALC OSMOLALITY 280 mosm/kg (275-300); CREATININE - SERUM 0.8 mg/dL (0.6-1.3); UREA NITROGEN 1 mg/dL (7-18); eGFR NON AFRICAN AMERICAN > 90 mL/min (90-120)
[2019-05-22 08:11] VITALS: BP 141/82
--- NOTE | 2019-05-22 09:30 | NUR ---
ATE ALL OF FULL LIQUID BREAKFAST WITHOUT NAUSEA OR PAIN. WILL ADVANCE DIET.
--- NOTE | 2019-05-22 10:45 | NUR ---
UP TO SHOWER WITH SET UP ASSISTANCE.DENIES NEEDS.
--- NOTE | 2019-05-22 12:22 | NUR ---
REQUESTED AND GIVEN ONE HYDROCODONE PO FOR C/O ABDOMINAL PAIN LEVEL 6. WILL MONITOR. MARVA TO LEFT LOWER ABDOMEN D/C WITHOUT DIFFICUTLY. DENIES NEEDS.
[2019-05-22 14:11] VITALS: BP 155/64
--- NOTE | 2019-05-22 18:01 | NUR ---
ATE ABOUT HALF OF SUPPER TRAY WITHOUT PAIN OR NAUSEA. NO CHANGES NOTED. DENIES NEEDS.
[2019-05-22 18:32] VITALS: BP 161/66
[2019-05-22 20:00] VITALS: BP 137/77
[2019-05-23] VITALS: BP 120/55
[2019-05-23 04:00] VITALS: BP 120/59
--- NOTE | 2019-05-23 04:25 | NUR ---
PT AMBULATED TO BATHROOM INDEPENDENTLY TO HAVE BM. GAVE 1 TAB NORCO-5 FOR PAIN 01/24. NO OTHER NEEDS. WILL CONTINUE TO MONITOR.
[2019-05-23 06:12] LABS: BASOPHILS 0.1 % (0-2); EOSINOPHILS 4.5 % (0-7); HEMATOCRIT 29.9 % (42.0-54.0); HEMOGLOBIN 9.3 g/dL (13.5-17.5); IMMATURE GRANULOCYTES 0.6 % (0-5); LYMPHOCYTES 18.8 % (15-50); MCH 27.3 pg (26.0-34.0); MCHC 31.1 g/dL (31.0-37.0); MCV 87.7 fL (80.0-100.0); MONOCYTES 7.4 % (2-11); NEUTROPHILS 68.6 % (40-80); PLATELET COUNT 406 10x3/uL (130-400); RBC 3.41 10x6/uL (4.20-6.10); WBC 6.9 10x3/uL (4.8-10.8)
[2019-05-23 06:31] LABS: ALBUMIN 2.3 g/dL (3.4-5.0); ALKALINE PHOSPHATASE 59 U/L (46-116); ALT (SGPT) 12 U/L (10-68); BILIRUBIN - TOTAL 0.56 mg/dL (0.2-1.3); CALC OSMOLALITY 283 mosm/kg (275-300); CALCIUM 7.8 mg/dL (8.5-10.1); CHLORIDE - SERUM 108 mmol/L (98-107); CREATININE - SERUM 0.6 mg/dL (0.6-1.3); GLUCOSE 107 mg/dL (74-106); POTASSIUM - SERUM 3.8 mmol/L (3.5-5.1); PROTEIN - SERUM 4.6 g/dL (6.4-8.2); SODIUM 144 mmol/L (136-145); UREA NITROGEN 4 mg/dL (7-18); eGFR NON AFRICAN AMERICAN > 90 mL/min (90-120)
[2019-05-23 08:43] VITALS: BP 155/77
--- NOTE | 2019-05-23 09:29 | NUR ---
PT C/O ABD PAIN RATING 6/10 ON PAIN SCALE. WAS MEDICATED WITH NORCO PER ORDERS.
--- NOTE | 2019-05-23 11:11 | MORECARE ---
CASE MANAGEMENT DISCHARGE SUMMARY PATIENT: LORETTA CONTE UNIT: [id number] ADM DATE: 05/13/19 AGE: 73 : [birth year] SEX: M ROOM/BED: D.2235 AUTHOR: NATALI CORDOVA PHYSICIAN: REFERRING PHYSICIAN: LORETTA FELDER MD DATE OF SERVICE: 05/23/19 Discharge Plan Patient Name: LORETTA CONTE Facility: [facility]:[place] : 1945 Planned Disposition: Inpatient Rehab Anticipated Discharge Date: Discharge Date: Expected LOS: Initial Reviewer: [email or web address] Initial Review Date: 05/16/2019 Generated: 05/23/19 12:11 pm Comments DCP- Discharge Planning Updated by [email or web address]: Celeste Phillipsjarrod on 05/23/19 10:[address] I tried to meet with patient, he is asleep. I called his and she states the plan is to come home with home health. His states she doesn't care what HHS he uses. I gave her the list over the phone and she chooses [facility]. I spoke with Mercedes and clinical and ordered faxed to [facility]. CM will continue to follow and assist with discharge planning/needs. DCP- Discharge Planning Updated by [email or web address]: Celeste Newberry on 05/18/19 8:[address] Spoke with today and informed that inpatient rehab did not feel he was a candidate for their program. She states she would like me to refer him to [facility] instead of [facility] as a first choice. I informed Jacquie Gold (liason for [facility]) and clinical faxed. CM will continue to follow and assist with discharge planning/needs. 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 CM educated patient on the CM role and verbal consent given by patient to complete assessment. Patient lives at home with his , grand daughter and grand daughter's mellisa and her 4 year old son. He has had falls at home and states he needs to go to inpatient rehab prior to going home. CM discussed availability of home health, rehab services, and medical equipment. Patient and his would like an inpatient referral to [facility] for rehab. They do sign a ARAVIND for [facility] if his insurance denies inpatient rehab. His states she has already applied for private care at [facility] health [facility]. She also states that she is buying a wheelchair. CM will continue to follow and will assist as needed with dc plans/needs. Employee Wellness/Fitness Coordinator: Celeste Newberry DCPIA - Discharge Planning Initial Assessment Updated by [email or web address]: Celeste Newberry on 05/16/19 4:16 pm * Is the patient Alert and Oriented? Yes * How many steps to enter\exit or inside your home? 5/0 * PCP Dr. Viramontes * Pharmacy [facility] in [place] * Preadmission Environment Home with Family * ADLs Partial Dependent * Partial ADLs (Assistance needed) Ambulation * Equipment Bedside Commode Cane Rolling Walker * List name and contact numbers for known caregivers / representatives who currently or will assist patient after discharge: Lou Conte - - [phone] Stacy Gutierrez - DTR - [phone] Safia - grand daughter - [phone] * Verbal permission to speak to the caregivers and representatives has been obtained from the patient. Yes * Community resources currently utilized None * Additional services required to return to the preadmission environment? Yes * Can the patient safely return to the preadmission environment? Yes * Has this patient been hospitalized within the prior 30 days at any hospital? No Coverage Notice Reviewer: [id number] - Celeste Newberry Notice Issued Date-Time: 05/16/2019 16:21 Notice Type: Patient Choice Letter Notice Delivered To: Family Member Relationship to Patient: Spouse Unattended Ground Sensor Specialist Name: LOU CONTE Delivery Method: HAND - Hand Delivered Jacinta Days: Prior Verbal Notification: Recipient Understood Notice: Yes Recipient Signature: Yes Med Rec Note Co-signed by Attending: Coverage Notice Comment: ARAVIND FOR DARREN FRAN[facility] Last DP export: 05/18/19 8:43 a Patient Name: LORETTA CONTE Page [id number] at 1111 All edits/amendments must be made on the electronic document DICTATION DATE: 05/23/19 1111 HOOP EXPANDER: LES 05/23/19 1111 RPT#: [id number] DC DATE: STATUS: ADM IN [facility] [address] [place] [address] END OF REPORT
--- NOTE | 2019-05-23 11:19 | MORECARE ---
CASE MANAGEMENT DISCHARGE SUMMARY PATIENT: LORETTA CONTE UNIT: [id number] ADM DATE: 05/13/19 AGE: 73 : [birth year] SEX: M ROOM/BED: D.2235 AUTHOR: NATALI CORDOVA PHYSICIAN: REFERRING PHYSICIAN: LORETTA FELDER MD DATE OF SERVICE: 05/23/19 Discharge Plan Patient Name: LORETTA CONTE Facility: [facility]:[place] : 1945 Planned Disposition: Inpatient Rehab Anticipated Discharge Date: Discharge Date: Expected LOS: Initial Reviewer: [email or web address] Initial Review Date: 05/16/2019 Generated: 05/23/19 12:19 pm Comments DCP- Discharge Planning Updated by [email or web address]: Celeste Phillipsjarrod on 05/23/19 10:[address] I tried to meet with patient, he is asleep. I called his and she states the plan is to come home with home health. His states she doesn't care what HHS he uses. I gave her the list over the phone and she chooses [facility]. I spoke with Mercedes and clinical and ordered faxed to [facility]. CM will continue to follow and assist with discharge planning/needs. DCP- Discharge Planning Updated by [email or web address]: Celeste Phillipsjarrod on 05/18/19 8:[address] Spoke with today and informed that inpatient rehab did not feel he was a candidate for their program. She states she would like me to refer him to [facility] of [facility] as a first choice. I informed Jacquie Gold (liason for [facility]) and clinical faxed. CM will continue to follow and assist with discharge planning/needs. 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 CM educated patient on the CM role and verbal consent given by patient to complete assessment. Patient lives at home with his , grand daughter and grand daughter's mellisa and her 4 year old son. He has had falls at home and states he needs to go to inpatient rehab prior to going home. CM discussed availability of home health, rehab services, and medical equipment. Patient and his would like an inpatient referral to [facility] for rehab. They do sign a ARAVIND for [facility] if his insurance denies inpatient rehab. His states she has already applied for private care at [facility] health department. She also states that she is buying a wheelchair. CM will continue to follow and will assist as needed with dc plans/needs. Counselor Education Professor: Celeste Newberry DCPIA - Discharge Planning Initial Assessment Updated by [email or web address]: Celeste Newberry on 05/16/19 4:16 pm * Is the patient Alert and Oriented? Yes * How many steps to enter\exit or inside your home? 5/0 * PCP Dr. Viramontes * Pharmacy [facility] in [place] * Preadmission Environment Home with Family * ADLs Partial Dependent * Partial ADLs (Assistance needed) Ambulation * Equipment Bedside Commode Cane Rolling Walker * List name and contact numbers for known caregivers / representatives who currently or will assist patient after discharge: Lou Conte - - [phone] Stacy Gutierrez - DTR - [phone] Safia - grand daughter - [phone] * Verbal permission to speak to the caregivers and representatives has been obtained from the patient. Yes * Community resources currently utilized None * Additional services required to return to the preadmission environment? Yes * Can the patient safely return to the preadmission environment? Yes * Has this patient been hospitalized within the prior 30 days at any hospital? No External Providers External Provider: [facility] Next Contact Date: Service Request Date: Service Type: Resolution: Reviewer: Comments: Coverage Notice Reviewer: [id number] - Celeste Newberry Notice Issued Date-Time: 05/16/2019 16:21 Notice Type: Patient Choice Letter Notice Delivered To: Family Member Relationship to Patient: Spouse Ship Keeper Name: LOU CONTE Delivery Method: HAND - Hand Delivered Jacinta Days: Prior Verbal Notification: Recipient Understood Notice: Yes Recipient Signature: Yes Med Rec Note Co-signed by Attending: Coverage Notice Comment: ARAVIND FOR [facility] Changed to wanting [facility] with [facility] if needed Last DP export: 05/23/19 10:11 a Patient Name: LORETTA CONTE Page [id number] at 1119 All edits/amendments must be made on the electronic document DICTATION DATE: 05/23/191118 CONDUIT MECHANIC: LES 05/23/19 111 RPT#: [id number] DC DATE: STATUS: ADM IN [facility] [address] [place] [address] END OF REPORT
--- NOTE | 2019-05-23 11:22 | NUR ---
I have reviewed this patient and I concur with the Shift Assessment completed by the Licensed Practical Nurse today this shift.
[2019-05-23 11:53] VITALS: BP 106/55
--- NOTE | 2019-05-23 13:13 | NUR ---
C/O ABD PAIN RATING 6/10 ON PAIN SCALE. C/L IN REACH AT BEDSIDE.
--- NOTE | 2019-05-23 13:59 | NUR ---
OT NOTE: PT DOING BETTER. BED MOB WITH SBA. IN ROOM AMBULAITON WITH WALKER AND MIN ASSIST; TOILETING WITH MIN ASSIST. ABLE TO AMB INTO HALLWAY WITH WALKER, GAIT BELT, AND CGA. UE AROM EXS WHILE ON EOB. RAIMUNDO MILLER, OTR/L
[2019-05-23 16:55] VITALS: BP 125/68
--- NOTE | 2019-05-23 18:27 | NUR ---
OT NOTE: PT COMPLETED ADL MOB TASKS WITH MIN A. PT COMPLETED GROOMING TASKS WITH SET UP. THANK YOU, NAVEEN AKERS
--- NOTE | 2019-05-23 19:30 | NUR ---
PT SITTING UP IN BED WITHOUT DISTRESS, AOX4. IV RIGHT SL, FLUSHES EASILY. PT STATES PAIN IN ABD 01/24, GAVE NORCO ORDERED. DENIES OTHER NEEDS, CL IN REACH. WILL CTM
[2019-05-23 20:15] VITALS: BP 136/64
[2019-05-24 00:47] VITALS: BP 138/73
[2019-05-24 05:14] VITALS: BP 166/82
[2019-05-24 06:44] LABS: ALBUMIN 2.3 g/dL (3.4-5.0); ALKALINE PHOSPHATASE 61 U/L (46-116); ALT (SGPT) 14 U/L (10-68); BILIRUBIN - TOTAL 0.52 mg/dL (0.2-1.3); CHLORIDE - SERUM 108 mmol/L (98-107); CREATININE - SERUM 0.7 mg/dL (0.6-1.3); GLUCOSE 106 mg/dL (74-106); POTASSIUM - SERUM 3.4 mmol/L (3.5-5.1); PROTEIN - SERUM 5.4 g/dL (6.4-8.2); SODIUM 146 mmol/L (136-145); eGFR NON AFRICAN AMERICAN > 90 mL/min (90-120)
[2019-05-24 06:46] LABS: CALC OSMOLALITY 288 mosm/kg (275-300); UREA NITROGEN 7 mg/dL (7-18)
[2019-05-24 06:53] LABS: BASOPHILS 0.2 % (0-2); HEMATOCRIT 30.7 % (42.0-54.0); HEMOGLOBIN 9.6 g/dL (13.5-17.5); IMMATURE GRANULOCYTES 0.5 % (0-5); LYMPHOCYTES 13.2 % (15-50); MCH 27.4 pg (26.0-34.0); MCHC 31.3 g/dL (31.0-37.0); MCV 87.7 fL (80.0-100.0); MEAN PLATELET VOLUME 9.1 fL (7.4-10.4); MONOCYTES 6.6 % (2-11); NEUTROPHILS 76.5 % (40-80); PLATELET COUNT 441 10x3/uL (130-400); RDW 15.3 % (11.5-14.5); WBC 8.6 10x3/uL (4.8-10.8)
--- NOTE | 2019-05-24 07:41 | NUR ---
PT IS RESTING IN BED WITH EYES OPEN. RESPIRATIONS ARE EVEN AND UNLABORED. PT DENIES PRESENCE OF N/V. PT REPORTS SLIGHT PAIN @ 3/10 TO ABDOMINAL AREA BUT DENIES NEEDS AT THIS TIME. LAP SITES X 2 BS ACTIVE X 4. BED IS IN THE LOWEST POSITION. CALL LIGHT AND BEDSIDE TABLE ARE WITHIN REACH. SIDE RAILS X 2. LESLIE ALARM IS ON AND WORKING. PT DENIES FURTHER NEEDS. WILL CONT TO MONITOR.
[2019-05-24 08:37] VITALS: BP 145/59
[2019-05-24 11:41] VITALS: BP 119/68
[2019-05-24] MEDS ORDERED: COLACE100 MG PO (12:15)
--- NOTE | 2019-05-24 12:34 | MORECARE ---
CASE MANAGEMENT DISCHARGE SUMMARY PATIENT: LORETTA CONTE UNIT: [id number] ADM DATE: 05/13/19 AGE: 73 : [birth year] SEX: M ROOM/BED: D.2235 AUTHOR: NATALI CORDOVA PHYSICIAN: REFERRING PHYSICIAN: LORETTA FELDER MD DATE OF SERVICE: 05/24/19 Discharge Plan Patient Name: LORETTA CONTE Facility: [facility]:[place] : 1945 Planned Disposition: Inpatient Rehab Anticipated Discharge Date: Discharge Date: Expected LOS: Initial Reviewer: [email or web address] Initial Review Date: 05/16/2019 Generated: 05/24/19 1:33 pm Comments DCP- Discharge Planning Updated by [id number]: Celeste Coni on 05/23/19 10:[address] I tried to meet with patient, he is asleep. I called his and she states the plan is to come home with home health. His states she doesn't care what HHS he uses. I gave her the list over the phone and she chooses [facility]. I spoke with Mercedes and clinical and ordered faxed to [facility]. CM will continue to follow and assist with discharge planning/needs. DCP- Discharge Planning Updated by [id number]: Celeste Phillipsjarrod on 05/18/19 8:[address] Spoke with today and informed that inpatient rehab did not feel he was a candidate for their program. She states she would like me to refer him to [facility] instead of [facility] as a first choice. I informed Jacquie Gold (liason for [facility]) and clinical faxed. CM will continue to follow and assist with discharge planning/needs. 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 CM educated patient on the CM role and verbal consent given by patient to complete assessment. Patient lives at home with his , grand daughter and grand daughter's mellisa and her 4 year old son. He has had falls at home and states he needs to go to inpatient rehab prior to going home. CM discussed availability of home health, rehab services, and medical equipment. Patient and his would like an inpatient referral to [facility] for rehab. They do sign a ARAVIND for [facility] if his insurance denies inpatient rehab. His states she has already applied for private care [facility]. She also states that she is buying a wheelchair. CM will continue to follow and will assist as needed with dc plans/needs. Hop Weigher: Celeste Newberry DCPIA - Discharge Planning Initial Assessment Updated by [id number]: Celeste Newberry on 05/16/19 4:16 pm * Is the patient Alert and Oriented? Yes * How many steps to enter\exit or inside your home? 5/0 * PCP Dr. Viramontes * Pharmacy [facility] in [place] * Preadmission Environment Home with Family * ADLs Partial Dependent * Partial ADLs (Assistance needed) Ambulation * Equipment Bedside Commode Cane Rolling Walker * List name and contact numbers for known caregivers / representatives who currently or will assist patient after discharge: Lou Conte - - [phone] Stacy Gutierrez - DTR - [phone] Safia - grand daughter - [phone] * Verbal permission to speak to the caregivers and representatives has been obtained from the patient. Yes * Community resources currently utilized None * Additional services required to return to the preadmission environment? Yes * Can the patient safely return to the preadmission environment? Yes * Has this patient been hospitalized within the prior 30 days at any hospital? No Coverage Notice Reviewer: [id number] - Celeste Newberry Notice Issued Date-Time: 05/16/2019 16:21 Notice Type: Patient Choice Letter Notice Delivered To: Family Member Relationship to Patient: Spouse Magazine Journalist Name: LOU CONTE Delivery Method: HAND - Hand Delivered Jacinta Days: Prior Verbal Notification: Recipient Understood Notice: Yes Recipient Signature: Yes Med Rec Note Co-signed by Attending: Coverage Notice Comment: ARAVIND FOR [facility] Changed to wanting [facility] with [facility] if needed Reviewer: [id number] Ilene Newberry Notice Issued Date-Time: 05/23/2019 15:12 Notice Type: IM Discharge Notice Notice Delivered To: Patient Relationship to Patient: Self Magazine Journalist Name: Delivery Method: HAND - Hand Delivered Jacinta Days: Prior Verbal Notification: Recipient Understood Notice: Yes Recipient Signature: Yes Med Rec Note Co-signed by Attending: Coverage Notice Comment: IMM explained, signed, given, copy placed in MR Last DP export: 05/23/19 10:19 a Patient Name: LORETTA CONTE Page [id number] at 1234 All edits/amendments must be made on the electronic document DICTATION DATE: 05/24/19 1233 SENIOR INFORMATICA DEVELOPER: LES 05/24/19 1233 RPT#: [id number] DC DATE: STATUS: ADM IN [facility] [address] [place] [address] END OF REPORT
--- NOTE | 2019-05-24 12:47 | MORECARE ---
CASE MANAGEMENT DISCHARGE SUMMARY PATIENT: LORETTA CONTE UNIT: [id number] ADM DATE: 05/13/19 AGE: 73 : 47 SEX: M ROOM/BED: D.2235 AUTHOR: NATALI CORDOVA PHYSICIAN: REFERRING PHYSICIAN: LORETTA FELDER MD DATE OF SERVICE: 05/24/19 Discharge Plan Patient Name: LORETTA CONTE Facility: [facility]:[place] : 1945 Planned Disposition: Inpatient Rehab Anticipated Discharge Date: Discharge Date: Expected LOS: Initial Reviewer: [id number] Initial Review Date: 05/16/2019 Generated: 05/24/19 1:47 pm Comments DCP- Discharge Planning Updated by [email or web address]: Celeste Newberry on 05/24/19 11:[address] Called [facility] and spoke with Megan, they will see him tomorrow. DC orders faxed to [facility]. is in the room and agrees with discharge today. No other needs noted. CM will continue to follow and assist with discharge planning/needs. DCP- Discharge Planning Updated by [id number]: Celeste Coni on 05/23/19 10:[address] I tried to meet with patient, he is asleep. I called his and she states the plan is to come home with home health. His states she doesn't care what HHS he uses. I gave her the list over the phone and she chooses [facility]. I spoke with Mercedes and maicol and ordered faxed to [facility]. CM will continue to follow and assist with discharge planning/needs. DCP- Discharge Planning Updated by [email or web address]: Celeste Newberry on 05/18/19 8:[address] Spoke with today and informed that inpatient rehab did not feel he was a candidate for their program. She states she would like me to refer him to [facility] instead of [facility] as a first choice. I informed Jacquie Gold (liason for [facility]) and clinical faxed. CM will continue to follow and assist with discharge planning/needs. 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 CM educated patient on the CM role and verbal consent given by patient to complete assessment. Patient lives at home with his , grand daughter and grand daughter's mellisa and her 4 year old son. He has had falls at home and states he needs to go to inpatient rehab prior to going home. CM discussed availability of home health, rehab services, and medical equipment. Patient and his would like an inpatient referral to [facility] for rehab. They do sign a ARAVIND for [facility] if his insurance denies inpatient rehab. His states she has already applied for private care at [facility] health department. She also states that she is buying a wheelchair. CM will continue to follow and will assist as needed with dc plans/needs. Core Drier: Celeste Newberry DCPIA - Discharge Planning Initial Assessment Updated by [id number]: Celeste Newberry on 05/16/19 4:16 pm * Is the patient Alert and Oriented? Yes * How many steps to enter\exit or inside your home? 5/0 * PCP Dr. Viramontes * Pharmacy [facility] in [place] * Preadmission Environment Home with Family * ADLs Partial Dependent * Partial ADLs (Assistance needed) Ambulation * Equipment Bedside Commode Cane Rolling Walker * List name and contact numbers for known caregivers / representatives who currently or will assist patient after discharge: Emili Conte - - [phone] Stacynaomi Gutierrez - DTR - [phone] Safia - grand daughter - [phone] * Verbal permission to speak to the caregivers and representatives has been obtained from the patient. Yes * Community resources currently utilized None * Additional services required to return to the preadmission environment? Yes * Can the patient safely return to the preadmission environment? Yes * Has this patient been hospitalized within the prior 30 days at any hospital? No Coverage Notice Reviewer: [id number] Newberry Notice Issued Date-Time: 05/16/2019 16:21 Notice Type: Patient Choice Letter Notice Delivered To: Family Member Relationship to Patient: Spouse Ethnoarchaeologist Name: EMILI CONTE Delivery Method: HAND - Hand Delivered Jacinta Days: Prior Verbal Notification: Recipient Understood Notice: Yes Recipient Signature: Yes Med Rec Note Co-signed by Attending: Coverage Notice Comment: ARAVIND FOR [employer] Changed to wanting [facility] with [facility] if needed Reviewer: [id number] Newberry Notice Issued Date-Time: 05/23/2019 15:12 Notice Type: IM Discharge Notice Notice Delivered To: Patient Relationship to Patient: Self Ethnoarchaeologist Name: Delivery Method: HAND - Hand Delivered Jacinta Days: Prior Verbal Notification: Recipient Understood Notice: Yes Recipient Signature: Yes Med Rec Note Co-signed by Attending: Coverage Notice Comment: IMM explained, signed, given, copy placed in MR Last DP export: 05/24/19 11:34 a Patient Name: LORETTA CONTE Page [id number] at 1247 All edits/amendments must be made on the electronic document DICTATION DATE: 05/24/19 1247 MARINE DIESEL MECHANIC: LES 05/24/19 1247 RPT#: [id number] [place] DATE: STATUS: ADM IN [facility] [address] [place] [address] END OF REPORT
--- NOTE | 2019-05-24 13:11 | NUR ---
ALL DISCHARGE PAPERS/INSTRUCTIONS COVERED WITH PT AND PT FAMILY MEMBERS. (2) PRINTED RX GIVEN TO PT SPOUSE PER PT REQUEST. PT AND PT FAMILY DENY FURTHER QUESTIONS/CONCERNS/NEEDS. ALL DISCHARGE PAPERS SIGNED BY PT SPOUSE AT PT REQUEST. PIV REMOVED FROM RIGHT AC WITH CATHETER TIP INTACT. DRESSING APPLIED. PT TO NOTIFY NURSE WHEN READY FROM TRANSPORT OUT OF ROOM.
--- NOTE | 2019-05-24 13:26 | NUR ---
PT TRANSPORTED FROM ROOM VIA WHEELCHAIR BY HOSPITAL VOLUNTEER STAFF. PT DENIES FURTHER QUESTIONS/CONCERNS/NEEDS.
--- NOTE | 2019-05-24 14:08 | NUR ---
OT NOTE: PT SEEN IN AM. PT WAS LETHARGIC BUT EASILY AROUSED. PERFORMED BED MOB WITH MIN ASSIST; IN ROOM AMBULATION WITH MIN ASSIST. SIMPLE GROOMING AND UPPER BODY BATHING WITH SET UP. RAIMUNDO MILLER, OTR/L
--- NOTE | 2019-05-24 16:57 | NUR ---
OT NOTE: PT COMPLETED BED MOB WITH SPV. PT COMPLETED EOB SITTING WITH SPV. PT COMPLETED UE FM/GM AXS. THANK YOU, NAVEEN AKERS
--- NOTE | 2019-05-25 14:07 | DS ---
PATIENT:LORETTA GUAMAN :[birth year] MEDICAL RECORD: [id number] DISCHARGE SUMMARY ADMISSION DATE: 05/13/19 DISCHARGE DATE: 05/24/19 PRINCIPAL DIAGNOSIS: History of recurrent acute sigmoid diverticulitis with microperforation. OTHER DIAGNOSES: Include hypertension, imbalance, hypercholesterolemia, coronary artery disease, anxiety, chronic obstructive pulmonary disease, coronary stents, appendectomy, craniotomy, exploratory abdominal operation in the past, anemia. PROCEDURE: Hand-assisted laparoscopic surgery - sigmoid colectomy. HOSPITAL COURSE: The patient underwent the above operative procedure. Dr. Ceballos's service saw the patient in consultation. His pain was controlled. His bowel function returned. His diet was advanced. He was dismissed home. Pathology on the resected specimen revealed diverticulosis/diverticulitis with mild chronic inflammation and mural fibrosis. TRANSINT:[id number] Voice Confirmation ID: [id number] DOCUMENT ID: [id number] LORETTA FELDER MD at 1407 CC: [id number] DICTATION DATE: 05/24/191708 RESEARCH ENGINEER: 05/25/19 09 DIS IN 05/24/19 [id number] [place] [address]
--- NOTE | 2019-05-27 09:47 | MORECARE ---
CASE MANAGEMENT DISCHARGE SUMMARY PATIENT: LORETTA CONTE UNIT: [id number] ADM DATE: 05/13/19 AGE: 73 : [birth year] SEX: M ROOM/BED: D.2235 AUTHOR: NATALI CORDOVA PHYSICIAN: REFERRING PHYSICIAN: LORETTA FELDER MD DATE OF SERVICE: 05/27/19 Discharge Plan Patient Name: LORETTA CONTE Facility: [facility]:[place] : 1945 Planned Disposition: Inpatient Rehab Anticipated Discharge Date: Discharge Date: 05/24/2019 Expected LOS: 0 Initial Reviewer: [email or web address] Initial Review Date: 05/16/2019 Generated: 05/27/19 10:47 am Comments DCP- Discharge Planning Updated by [email or web address]: Celeste Newberry on 05/24/19 11:[address] Called [facility] and spoke with Megan, they will see him tomorrow. DC orders faxed to [facility]. is in the room and agrees with discharge today. No other needs noted. CM will continue to follow and assist with discharge planning/needs. DCP- Discharge Planning Updated by [id number]: Celeste Newberry on 05/23/19 10:[address] I tried to meet with patient, he is asleep. I called his and she states the plan is to come home with home health. His states she doesn't care what HHS he uses. I gave her the list over the phone and she chooses [facility]. I spoke with Mercedes and maicol and ordered faxed to [facility]. CM will continue to follow and assist with discharge planning/needs. DCP- Discharge Planning Updated by [id number]: Celeste Newberry on 05/18/19 8:[address] Spoke with today and informed that inpatient rehab did not feel he was a candidate for their program. She states she would like me to refer him to [facility] instead of [facility] as a first choice. I informed Jacquie Gold (liason for [facility]) and clinical faxed. CM will continue to follow and assist with discharge planning/needs. DCP- Discharge Planning Updated by [id number]: Celeste Newberry on 05/16/19 3:[address] Patient Name: LORETTA CONTE Admission Status: Elective Accout number: [id number] Admission Date: 05-13-2019 : 1945 Admission Diagnosis:DVTRCLI OF INTEST, PART UNSP, W/O PERF OR ABSCESS W/O B Attending: LORETTA FELDER Current LOS: 3 Anticipated DC Date: Planned Disposition: Inpatient Rehab Primary Insurance: [employer] CHOICE PPO MCR ADVANT Discharge Planning Comments: CM met with patient to complete initial dc planning assessment. CM educated patient on the CM role and verbal consent given by patient to complete assessment. Patient lives at home with his , grand daughter and grand daughter's fiphuong?e and her 4 year old son. He has had falls at home and states he needs to go to inpatient rehab prior to going home. CM discussed availability of home health, rehab services, and medical equipment. Patient and his would like an inpatient referral to [facility] for rehab. They do sign a ARAVIND for [facility] if his insurance denies inpatient rehab. His states she has already applied for private care at [facility] health department. She also states that she is buying a wheelchair. CM will continue to follow and will assist as needed with dc plans/needs. Admitting Supervisor: Celeste Newberry DCPIA - Discharge Planning Initial Assessment Updated by [id number]: Celeste Newberry on 05/16/19 4:16 pm * Is the patient Alert and Oriented? Yes * How many steps to enter\exit or inside your home? 5/0 * PCP Dr. Viramontes * Pharmacy [facility] in [place] * Preadmission Environment Home with Family * ADLs Partial Dependent * Partial ADLs (Assistance needed) Ambulation * Equipment Bedside Commode Cane Rolling Walker * List name and contact numbers for known caregivers / representatives who currently or will assist patient after discharge: Emili Conte - - [phone] Stacynaomi Gutierrez DTR - [phone] Safia - grand daughter - [phone] * Verbal permission to speak to the caregivers and representatives has been obtained from the patient. Yes * Community resources currently utilized None * Additional services required to return to the preadmission environment? Yes * Can the patient safely return to the preadmission environment? Yes * Has this patient been hospitalized within the prior 30 days at any hospital? No Coverage Notice Reviewer: [id number] Newberry Notice Issued Date-Time: 05/16/2019 16:21 Notice Type: Patient Choice Letter Notice Delivered To: Family Member Relationship to Patient: Spouse Online Editor Name: EMILI CONTE Delivery Method: HAND - Hand Delivered Jacinta Days: Prior Verbal Notification: Recipient Understood Notice: Yes Recipient Signature: Yes Med Rec Note Co-signed by Attending: Coverage Notice Comment: ARAVIND FOR [employer] Changed to wanting [facility] with [place] if needed Reviewer: [id number] Ilene Newberry Notice Issued Date-Time: 05/23/2019 15:12 Notice Type: IM Discharge Notice Notice Delivered To: Patient Relationship to Patient: Self Online Editor Name: Delivery Method: HAND - Hand Delivered Jacinta Days: Prior Verbal Notification: Recipient Understood Notice: Yes Recipient Signature: Yes Med Rec Note Co-signed by Attending: Coverage Notice Comment: IMM explained, signed, given, copy placed in MR Last DP export: 05/24/19 11:47 a Patient Name: LORETTA CONTE Page [id number] at 0947 All edits/amendments must be made on the electronic document DICTATION DATE: 05/27/19946 HAND PRESSER: LES 05/27/19946 RPT#: [id number] DC DATE:05/24/19 STATUS: DIS IN [facility] [address] [place] [address] END OF REPORT
== END 2019-05-24 13:27 | disposition home health service (06) | DRG 330 ==
LOC: D.MS 05-13 06:42 → D.ICU 05-13 06:42 → D.SDCHOLD 05-13 06:42 → D.ICU 05-13 15:05 → D.MS 05-14 16:16 → D.SDCHOLD 05-16 08:53 → D.MS 05-24 13:27
PROVIDERS: Anesthesiology; Family Medicine; Internal Medicine Nephrology; Surgery; ADMIT Surgery; ATTEND Surgery
PROC: 0DTN0ZZ Resection of Sigmoid Colon, Open Approach (ICD-10-PCS; principal; 2019-05-13 09:00)
DX: K57.21 Diverticulitis of large intestine with perforation and abscess with bleeding (principal); D62 Acute posthemorrhagic anemia; I10 Essential (primary) hypertension; E78.00 Pure hypercholesterolemia, unspecified; I25.10 Atherosclerotic heart disease of native coronary artery without angina pectoris; G40.909 Epilepsy, unspecified, not intractable, without status epilepticus; Z91.81 History of falling; L40.9 Psoriasis, unspecified; M19.90 Unspecified osteoarthritis, unspecified site; J44.9 Chronic obstructive pulmonary disease, unspecified

== ENCOUNTER → 2019-06-16 12:51 | Outpatient (CLI) | payer MEDICARE, OTHER ==
[2019-05-19 12:39] VITALS: BMI 25.6
[~2019-06-16 12:51] MED LIST changes: +COLACE100 MG PO; +NEOMYCIN SULFA500 MG
[2019-06-16 13:27] LABS: BASOPHILS 0.3 % (0-2); EOSINOPHILS 3.3 % (0-7); HEMATOCRIT 45.9 % (42.0-54.0); HEMOGLOBIN 14.3 g/dL (13.5-17.5); IMMATURE GRANULOCYTES 0.2 % (0-5); LYMPHOCYTES 22.4 % (15-50); MCH 27.1 pg (26.0-34.0); MCHC 31.2 g/dL (31.0-37.0); MCV 87.1 fL (80.0-100.0); MEAN PLATELET VOLUME 9.4 fL (7.4-10.4); MONOCYTES 6.5 % (2-11); NEUTROPHILS 67.3 % (40-80); RBC 5.27 10x6/uL (4.20-6.10); RDW 14.7 % (11.5-14.5); WBC 12.2 10x3/uL (4.8-10.8)
[2019-06-16 13:33] LABS: PLATELET COUNT 263 10x3/uL (130-400)
== END | disposition home or self-care (01) ==
LOC: D.LAB 12:51
PROVIDERS: ATTEND Surgery
DX: R10.9 Unspecified abdominal pain (principal)

== ENCOUNTER 2019-08-07 14:35 | Outpatient (CLI) | payer MEDICARE ==
[~2019-08-07] VITALS: Ht 167.6 cm; Wt 65.8 kg
--- NOTE | ~2019-08-07 | EC ---
PATIENT:LORETTA GUAMAN DATE OF SERVICE: 08/07/19 SEX: M MEDICAL RECORD: [id number] DATE OF : [birth year] LOCATION:D. D.212 AGE OF PATIENT: 73 ADMISSION DATE: 08/07/19 REFERRING PHYSICIAN: INTERPRETING PHYSICIAN: CHRIS MARQUEZ MD ECHOCARDIOGRAM REPORT ECHO CHARGES 4 ECHO COMPLETE Date: 08/08/19 CLINICAL DIAGNOSIS: ANGINA HX CAD/STENTS ECHOCARDIOGRAPHIC MEASUREMENTS (adult normal given) AC root (d.<3.7cm) 3.4 cm LV Septum d (<1.2 cm> 1.5 cm Valve Excursion 1.5 cm LV Septum (systole) 1.6 cm Left Atria (s.<4.0cm> 3.7 cm LVPW d(<1.2cm) 1.6 cm RV (d.<2.3cm) 3.2 cm LVPW (sytole) 1.7 cm LV diastole(<5.6CM) 5.6 cm MV E-F(>70mm/sec) cm LV systole 4.6 cm LVOT Diameter 1.8 cm MV exc.(>10mm) 1.7 cm Est.ejection fraction (50-75%) % DOPPLER: LVIT cm/sec A 73.0 cm/sec E 69.0 cm/sec LA cm/sec RVSP 16 mmHg LVOT 75 cm/sec AOP1/2T m/s Asc. Ao 88 cm/sec RVOT cm/sec RA cm/sec PA cm/sec AV Gradient Peak 3.09 mmHg AV Mean 1.51 mmHg AV Area 2.5 cm MV Gradient Peak 2.59 mmHg MV Mean 0.83 mmHg MV Area cm COMMENTS: Answering Service Operator: Ginger NICHOLSON Demand Planner: 1 Dr. Marquez TAPE# PACS Pericardial Effusion N DATE OF SERVICE: 08/08/2019 FINDINGS: 1. Left ventricular chamber size is within normal limits. Left ventricular systolic function is normal. Overall ejection fraction estimated at 55% to 60%. 2. Left atrium, right atrium, and right ventricle chamber sizes are within normal limits. 3. Valvular structures have normal structure and motion. 4. Doppler interrogation reveals mild mitral regurgitation, trace tricuspid regurgitation, no other valvular insufficiency or stenosis. ECHOCARDIOGRAM REPORT [id number] LORETTA GUAMAN 5. No evidence of pericardial effusion or left ventricular thrombus and pulmonary systolic pressure is normal estimated at 17 mmHg. TRANSINT:[id number] Voice Confirmation ID: [id number] DOCUMENT ID: [id number] CHRIS MARQUEZ MD CC: [id number] DICTATION DATE: 08/08/19 125 IMPLEMENTATION PROJECT MANAGER: 08/08/191951 ADM IN [facility] [address] [place] [id number]
--- NOTE | ~2019-08-07 | HEMODYNAMI ---
PATIENT:LORETTA GUAMAN MEDICAL RECORD: [id number] : [birth year] [address] [id number] ADMISSION DATE: 08/07/19 Generatedon:08/08/201915:16 Patient name: LORETTA GUAMAN Patient #: [id number] SSN: : 1945 Date of study: 08/08/2019 Page: Of Hemodynamic Procedure Report Patient Data Patient Demographics Procedure consent was obtained First Name: LORETTA Gender: Male Last Name: DENIZ : 1945 [facility] Initial: R Age: 73 year(s) Patient #: [id number] Race: Additional ID: [id number] Contact details Address: [address] [place] [address] State: [place] City: [place] Zip code: [address] Past Medical History Allergies: No known allergies Admission Admission Data Admission Date: 08/07/2019 Admission Time: 16:24 Admit Source: Emergency department Room #: D.2125 Height (in.): 167 BSA: 3.61 (m2) Height (cm.): 424.18 BMI: 4.16 (kg/m2) Weight (lbs.): 165 Weight (kg.): 74.84 Lab Results Lab Result Date: 08/08/2019 Lab Result Time: 0:00 Biochemistry Name Units Result Min Max BUN mg/dl 18 --(---*)-- 7 18 Creatinine mg/dl 1.1 --(--*-)-- 0.6 1.3 eGFR ml/min 70.14135 *-(----)-- 90 120 NONAFRICAN CBC Name Units Result Min Max Hematocrit % 39.2 -*(----)-- 42 54 Hemoglobin g/dl 11.9 *-(----)-- 13.5 17.5 Procedure Procedure Types Cath Procedure Diagnostic Procedure LHC LHC w/Coronaries w/Grafts FFR/IVUS FFR Initial Sedation Charges Moderate Sedation up to 15 minutes PCI Procedure Coronary Stent Coronary Stent Initial AMI/SVG/ENVIRONMENTAL COMPLIANCE OFFICER PTCA or Stent SVG-BMS/MAK Initial Procedure Description Procedure Date Procedure Date: 08/08/2019 Procedure Start Time: 14:49 Procedure End Time: 15:12 Procedure Staff Name Function Iggy Marquez MD Performing Physician Candice Hartley RT Monitor Jeny Rosa RT Scrub Alvin Cardenas RN Nurse Procedure Data Cath Procedure Fluoroscopy Diagnostic fluoroscopy Total fluoroscopy Time: 5.3 time: 5.3 min min Diagnostic fluoroscopy Total fluoroscopy dose: 677 dose: 677 mGy mGy Contrast Material Contrast Material Type Amount (ml) Isovue 300 104 Entry Location Entry Primary Successful Side Size Upsize Upsize Entry Closure Succes sful Closure Location (Fr) 1 (Fr) 2 (Fr) Remarks Device Remarks Femoral Right 5 Fr 6 Fr Exoseal artery Short Estimated blood loss: 10 ml Diagnostic catheters Device Type Used For End Catheter Placement MULTIPACK Pigtail 5 Fr Procedure catheter MULTIPACK JL 4.0 5Fr Procedure catheter MULTIPACK 3DRC 5Fr Procedure catheter DIAGNOSTIC AR2 MOD 5 Fr Procedure catheter ([id number]) Procedure Complications No complications Procedure Medications Medication Administration Route Dosage 0.9% NaCl I.V. 100 ml/hr Oxygen etCO2 Nasal cannula 2 l/min Heparin Flush Bag added to field 2 bags (1000units/500ml NS) Lidocaine 2% added to field 20 Versed I.V. 1 mg Fentanyl I.V. 50 mcg Fentanyl I.V. 25 mcg Versed I.V. 0.5 mg Heparin Bolus I.V. 4000 units Versed I.V. 0.5 mg Fentanyl I.V. 25 mcg Plavix P.O. 75 mg Hemodynamics Rest BSA: 3.61 (m2) HGB: 11.9 (g/dl) O2 Consumption: Estimated: 394.86 (ml/min) O2 Co nsumption indexed: Estimated:109.38 (ml/min/m) Heart Rate: 54 (bpm) Snapshots Pre Cath Intra NCS Post Cath Vital Signs Time Heart Resp SPO2 etCO2 NIBP (mmHg) Rhythm Pain Sedation Rate (ipm) (%) (mmHg) Status Level (bpm) 14:38:11 54 28 100 22.5 165/79(134) NSR 0 (11) 10(A) , No pain 14:42:38 52 25 96 22.5 150/76(120) NSR 0 (11) 10(A) , No pain 14:46:56 58 19 95 31.5 150/82(123) NSR 0 (11) 10(A) , No pain 14:51:14 60 17 93 0.7 149/81(118) NSR 0 (11) 9(A) , No pain 14:55:30 72 19 93 15 146/85(122) NSR 0 (11) 9(A) , No pain 14:59:48 66 17 94 29.2 150/77(118) NSR 0 (11) 9(A) , No pain 15:04:08 66 18 94 30.8 134/75(112) NSR 0 (11) 9(A) , No pain 15:08:20 74 18 95 31.5 144/82(119) NSR 0 (11) 10(A) , No pain 15:12:36 68 18 94 24.7 149/81(119) NSR 0 (11) 10(A) , No pain Medications Time Medication Route Dose Verified Delivered Reason Notes Effectiveness by by 14:40:40 0.9% NaCl I.V. 100 Alvin Alvin Per physician ml/hr Ronald Cardenas RN RN 14:40:50 Oxygen etCO2 2 Alvin Alvin for low 02 sats Nasal l/min Ronald Cardenas cannula RN RN 14:41:02 Heparin Flush added 2 Alvin Alvin used for Bag to bags Ronald Cardenas procedure (1000units/500ml RN RN NS) 14:41:16 Lidocaine 2% added 20ml Alvin Alvin for local to vial Ronald Cardenas anesthetic RN RN 14:47:10 Versed I.V. 1 mg Alvin Alvin for sedation Ronald Cardenas RN RN 14:47:19 Fentanyl I.V. 50 Alvin Alvin for sedation mcg Ronald Cardenas RN RN 14:50:01 Fentanyl I.V. 25 Alvin Alvin for sedation mcg Ronald Cardenas RN RN 14:50:11 Versed I.V. 0.5 Alvin Alvin for sedation mg Ronald Cardenas RN RN 14:56:19 Heparin Bolus I.V. 4000 Alvin Alvin for units Ronald moralez RN RN 15:03:28 Versed I.V. 0.5 Alvin Alvin for sedation mg Ronald Cardenas RN RN 15:03:34 Fentanyl I.V. 25 Alvinlibertad Esquivel for sedation mcg Ronald Cardenas RN RN 15:09:45 Plavix P.O. 75 mg Alvin Esquivel for Ronald Cardenas antiplatelet RN RN therapy Procedure Log Time Note 14:15:51 Informed consent obtained and on chart 14:16:43 Procedure Status Urgent Heart Cath (IP). 14:17:25 Alvin Cardenas RN sent for patient. Start room use. 14:17:26 Time tracking: Regular hours (M-F 7:00 - 5:00) 14:17:31 Plan of Care:Hemodynamics will remain stable., Cardiac rhythm will remain stable., Comfort level will be maintained., Respiratory function will remain adequate., Patient/ family verbilizes understanding of procedure., Procedure tolerated without complication., Recovers from procedure without complications.. 14:19:26 H&P Date Dictated: 08/08/2019 New H&P dictated by physician.. 14:19:37 Patient allergic to No known allergies 14:20:42 Lab Result : BUN 18 mg/dl 14:20:42 Lab Result : Creatinine 1.1 mg/dl 14:20:42 Lab Result : eGFR NONAFRICAN 70.38878 ml/min 14:20:42 Lab Result : Hemoglobin 11.9 g/dl 14:20:42 Lab Result : Hematocrit 39.2 % 14:26:59 Patient received from Med II to CCL 1 Alert and oriented. Tansferred to table in Supine position. 14:27:00 Warm blankets applied, and michael hugger turned on for patient comfort. 14:27:00 Correct patient and procedure confirmed by team. 14:27:00 ECG and BP/O2 sat monitors applied to patient. 14:36:16 Vital chart was started 14:36:22 Baseline sample Acquired. 14:36:24 Rhythm: sinus bradycardia 14:36:26 Full Disclosure recording started 14:36:27 Pre-procedure instructions explained to patient. 14:36:27 Pre-op teaching completed and patient verbalized understanding. 14:36:28 Family in patients room. 14:36:29 Patient NPO since Midnight. 14:36:31 Is the patient allergic to Iodine/contrast media? No. 14:36:32 Is patient on blood thinner?Yes 14:36:42 PRE LOADED ON PLAVIX 14:36:44 Patient diabetic? No. 14:36:46 Previous problem with sedation/anesthesia? No ? 14:36:47 Snore? Yes 14:36:49 Sleep apnea? No 14:36:50 Deviated septum? No 14:36:52 Opens mouth fully? Yes 14:36:56 Sticks out tongue? Yes 14:36:58 Airway obstruction? Yes COPD 14:37:01 Dentures? No ? 14:37:03 Pre procedure: right dorsailis pedis pulse 1+ Palpable, but thready & weak; easily obliterated 14:37:06 Patient pain scale 0/10 ?. 14:37:21 IV patent on arrival in right antecubital with 0.9% NaCl at [facility]. 14:37:26 Lab results completed and on chart. 14:37:29 Stress Test: no; N/A ? 14:37:56 Patient Weight : 165 lbs 14:38:04 Patient Height : 167 inches 14:38:05 Admit Source: Emergency department 14:40:28 Risk of Mortality: .1 14:40:31 Risk of blood transfusion: 2.5 14:40:34 Risk of SKIP: 2.5 14:40:37 Right groin area was prepped with chlora-prep and draped in sterile fashion 14:40:40 0.9% NaCl 100 ml/hr I.V. was administered by Alvin Cardenas RN; Per physician; Verbal order read back and verified. 14:40:40 Alarms reviewed by R. N. 14:40:40 Sharps counted by scrub and verified by R.N. 14:40:50 Oxygen 2 l/min etCO2 Nasal cannula was administered by Alvin Cardenas RN; for low 02 sats; Verbal order read back and verified. 14:41:02 Heparin Flush Bag (1000units/500ml NS) 2 bags added to field was administered by Alvin Cardenas RN; used for procedure; Verbal order read back and verified. 14:41:10 Use device set Femoral Dx 14:41:11 ACIST Syringe (59964) opened to sterile field. 14:41:12 Bag Decanter () opened to sterile field. 14:41:13 ACIST Hand Control (00403) opened to sterile field. 14:41:14 ACIST Manifold (19715) opened to sterile field. 14:41:16 Lidocaine 2% 20ml vial added to field was administered by Alvin Cardenas RN; for local anesthetic; Verbal order read back and verified. 14:41:17 Tegaderm 4 x 4 (1626W) opened to sterile field. 14:41:18 Medline Cath Pack ([id number]) opened to sterile field. 14:41:19 DIAGNOSTIC Multipack 5Fr catheter set (XL2937) opened to sterile field. 14:41:20 SHEATH 5FR [place] (QNR667) opened to sterile field. 14:41:20 EMERALD Guide Wire (755-732) opened to sterile field. 14:43:20 Procedure type changed to Cath procedure, Diagnostic procedure, LHC, LHC w/Coronaries w/Grafts, FFR/IVUS, FFR Initial, Sedation Charges, Moderate Sedation up to 15 minutes, PCI procedure, Coronary Stent, Coronary Stent Initial, AMI/SVG/ENVIRONMENTAL COMPLIANCE OFFICER PTCA or Stent, SVG-BMS/MAK Initial 14:45:47 --------ALL STOP TIME OUT------ 14:45:48 Final Timeout: patient, procedure, and site verified with staff and physician. All members of the team are in agreement. 14:45:49 Right groin site verified by team. 14:45:53 Fire Safety Assessment: A--An alcohol-based skin anteseptic being used preoperatively., C--Open oxygen or nitrous oxide is being used., D--An ESU, laser, or fiber-optic light is being used. 14:45:55 Physical assessment completed. ASA score P 3 - A patient with severe systemic disease as per Iggy Marquez MD. 14:45:58 2) 60-89 Mildly reduced kidney function, and other findings (as for stage 1) point to kidney disease. 14:46:02 Maximum allowable contrast dose (3.7 X eGFR X 0.75)194 ml. 14:46:04 Sedation plan: IV Moderate Sedation Medication:Versed, Fentanyl 14:47:10 Versed 1 mg I.V. was administered by Alvin Cardenas RN; for sedation; Verbal order read back and verified. 14:47:19 Fentanyl 50 mcg I.V. was administered by Alvin Cardenas RN; for sedation; Verbal order read back and verified. 14:49:32 Procedure started. 14:49:35 Local anesthetic to right femoral artery with Lidocaine 2% by Iggy Marquez MD.INITIAL ACCESS ONLY 14:49:49 A 5 Fr sheath was inserted into the Right Femoral artery 14:50:01 Fentanyl 25 mcg I.V. was administered by Alvin Cardenas RN; for sedation; Verbal order read back and verified. 14:50:11 Versed 0.5 mg I.V. was administered by Alvin Cardenas RN; for sedation; Verbal order read back and verified. 14:50:11 A MULTIPACK Pigtail 5 Fr catheter was advanced over the wire and used for Procedure. 14:50:29 LV gram done using SCHREIBER 14:50:31 Injector settings: Ml/sec: 10, Volume: 20, 14:50:36 EF : 40 % 14:50:38 Catheter removed. 14:51:26 Gini Guide Wire (535-064) opened to sterile field. 14:51:29 A MULTIPACK JL 4.0 5Fr catheter was advanced over the wire and used for Procedure. 14:52:29 LCA angiography performed. 14:52:30 Catheter removed. 14:53:10 A MULTIPACK 3DRC 5Fr catheter was advanced over the wire and used for Procedure. 14:53:51 MOODY to LAD angiography performed. 14:53:52 Catheter removed. 14:53:59 A DIAGNOSTIC AR2 MOD 5 Fr catheter ([id number]) was advanced over the wire and used for Procedure. 14:54:39 SVG to RCA angiography performed. 14:54:56 Catheter removed. 14:54:59 SHEATH 6FR [place] (SLZ097) opened to sterile field. 14:54:59 CHOICE PT Extra Support 182cm wire ([id number]) opened to sterile field. 14:55:00 INFLATOR Merit BasixCompak (FS6869) opened to sterile field. 14:55:07 Sheath upsized to a 6 Fr Short. 14:55:39 GUIDE 6FR MB 1 catheter (LA6MB1) opened to sterile field. 14:56:00 6 Fr MB 1 guide catheter was inserted over the wire 14:56:19 Heparin Bolus 4000 units I.V. was administered by Alvin Cardenas RN; for anticoagulation; Verbal order read back and verified. 14:56:30 RSensrata Plus pressure wire (01391A) opened to sterile field. 14:56:59 FFR/IFR wire advanced. 14:58:02 Wire advanced across lesion. 14:58:20 SVG mRCA lesion measured at .88 with IFR 14:59:25 Pre PCI Site: Vein Graft mRCA has 70% stenosis. 15:00:32 Place stent Inflation Number: 1 A COBRA RX 3.5 X 12 Stent was prepped and advanced across the Aorta Right -> Mid RCA . The stent was deployed at 25 ALIDA for 0:00 (min:sec) . 15:00:50 Stent catheter was removed intact over wire. 15:00:51 Wire removed. 15:00:51 Guide catheter removed. 15:01:01 Pre PCI Site: [place] mCirc has 90% stenosis. 15:01:16 GUIDE 6FR XBLAD 3.5 catheter ([id number]) opened to sterile field. 15:01:28 6 Fr XBLAD 3.5 guide catheter was inserted over the wire 15:02:25 Guide Catheter removed. unable to cannulate vessel. 15:02:35 GUIDE 6FR EBU 4.0 guide catheter ([id number]) opened to sterile field. 15:02:47 6 Fr EBU 4 guide catheter was inserted over the wire 15:03:28 Versed 0.5 mg I.V. was administered by Alvin Cardenas RN; for sedation; Verbal order read back and verified. 15:03:34 Fentanyl 25 mcg I.V. was administered by Alvin Cardenas RN; for sedation; Verbal order read back and verified. 15:04:32 CHOICE ES 182 wire advanced. 15:04:34 Wire advanced across lesion. 15:05:41 Place stent Inflation Number: 1 A COBRA RX 2.5 X 18 Stent was prepped and advanced across the Mid CX . The stent was deployed at 17 ALIDA for 0:00 (min:sec) . 15:05:55 Inflation number: 2 The stent balloon was then re-inflated across the Mid CX to 21 ALIDA for 0:00 (min:sec) . 15:06:09 Stent catheter was removed intact over wire. 15:06:10 Wire removed. 15:06:10 Guide catheter removed. 15:06:31 EXOSEAL 6Fr (EX600) opened to sterile field. 15:06:41 Sheath removed intact; hemostasis achieved with Exoseal to the Right Femoral artery. 15:06:43 Procedure ended.(Physican Out) 15:07:34 ACT drawn and resulted at 258 seconds. (normal therapeutic range 180-240 seconds). 15:08:17 Fluoroscopy time 05.30 minutes. 15:08:20 Flurop Dose total: 677 15:08:20 Fluoroscopy dose: 677 mGy 15:08:24 Dose Area Product 11861 mGy/cm. 15:08:29 Contrast amount:Isovue 300 104ml. 15:08:32 Maximum allowable dose exceeded? No. 15:08:33 Sharps counted by scrub and verified by R.N. 15:08:39 Post-op/insertion site Right Femoral artery dressed using a 4 x 4 and Tegaderm. 15:08:41 Post-procedure physical assessment completed. ASA score P 2 - A patient with mild systemic disease as per Iggy Marquez MD. 15:08:44 Post procedure rhythm: sinus rhythm 15:08:46 Estimated blood loss: 10 ml 15:08:47 Post procedure instruction explained to patient.Patient verbalizes understanding. 15:08:48 Patient needs reinforcement of post procedure teaching. 15:09:45 Plavix 75 mg P.O. was administered by Alvin Cardenas RN; for antiplatelet therapy; Verbal order read back and verified. 15:11:51 Procedure and supply charges have been captured, reviewed, submitted and are correct. 15:11:54 Procedure Complication : No complications 15:11:56 Vital chart was stopped 15:11:58 [facility] Findings: MVD- PCI performed (see procedure note) 15:11:59 Operative report dictated upon procedure completion. 15:12:00 See physician's report for complete and final results. 15:12:01 Report given to PCU. 15:12:04 Patient transfered to PCU with Bed. 15:12:05 Procedure ended. 15:12:05 Full Disclosure recording stopped 15:12:12 ACC-PCI Only Patient was given prescriptions, or instructed by Iggy Marquez MD to start/continue the following medications upon discharge: Plavix 15:12:13 End room use (Document Last) 15:15:11 End room use (Document Last) 15:15:34 End room use (Document Last) Intervention Summary Intervention Notes Time ActionType Lesion and Equipment Action# Pressure Duration Attributes Used 15:00:32 Place stent Aorta Right COBRA RX 1 25 00:00 -> Mid RCA 3.5 X 12 Stent 15:05:41 Place stent Mid CX COBRA RX 1 17 00:00 2.5 X 18 Stent 15:05:55 Reinflate Mid CX COBRA RX 2 21 00:00 stent 2.5 X 18 balloon Stent Device Usage Item Name Manufacture Quantity Catalog Number Hospital Part Current Minimal Lot# / Charge Number Stock Stock Serial# Code ACIST Syringe Acist 1 84774 071446 155661 656292 20 (09131) Medical Systems BluPanda Bag Decanter Microtek 1 2001S 207677 89635 450937 5 (2001S) Medical Inc. ACIST Hand Acist 1 61854 801937 191173 671974 5 Control Medical (03208) Systems Inc ACIST Manifold Acist 1 82940 461897 688440 036839 5 (72793) Medical Systems Inc Tegaderm 4 x 4 3M 1 1626W 202487 175473 712798 5 (1626W) Medline Cath Medline 1 [id number] 926231 35508 668381 5 Pack ([id number]) DIAGNOSTIC Cardinal 1 DU3385 522875 38395 211144 30 Multipack 5Fr Health catheter set (HR6485) SHEATH 5FR Terumo 1 WOB904 505118 729775 010124 5 [place] (IXN792) EMERALD Guide Cardinal 2 502-455 619871 758802 963026 5 Wire (502-455) Health MULTIPACK Cardinal 1 185478 5 Pigtail 5 Fr Health catheter MULTIPACK JL Cardinal 1 692066 5 4.0 5Fr Health catheter MULTIPACK 3DRC Cardinal 1 509959 5 5Fr catheter Health DIAGNOSTIC AR2 Cardinal 1 [id number] 574216 148121 296568 20 MOD 5 Fr Health catheter (304534M) SHEATH 6FR Terumo 1 PLD819 925963 596258 596270 40 [place] (SNE270) CHOICE PT Driscoll 1 [id number] 589154 793606 678095 5 Extra Support Scientific 182cm wire (7678485J6) INFLATOR Merit Merit 1 RE8321 952338 540341 137223 15 Plink SearchvaPopUpsters Medical (YO5674) GUIDE 6FR MB 1 Medtronic 1 LA6MB1 162114 32619 522718 1 catheter (LA6MB1) [employer] Eglin [employer]b 1 57505W 585361 379481258 731796 5 Verrata Plus pressure wire (50006S) COBRA RX 3.5 X Celonova 1 251482 [id number] 221042 8 [id number] 12 stent Biosciences () GUIDE 6FR Cardinal 1 [id number] 706387 651296 525071 10 XBLAD 3.5 Health catheter (74872105) GUIDE 6FR EBU Medtronic 1 [id number] 373448 51117 451474 1 4.0 guide catheter (LI8NWE75) COBRA RX 2.5 X Celonova 1 708252 536841908 0307052 4 4 [id number] 18 stent Biosciences () EXOSEAL 6Fr Cardinal 1 EX600 038741 321469 342371 10 (EX600) Health Signature Audit [place] Stage Time Signature Unsigned Intra-Procedure 08/08/2019 Candice Hartley 3:15:11 PM RT(R) Intra-Procedure 08/08/2019 Alvin 3:15:34 PM Ronald LÓPEZ Intra-Procedure 08/08/2019 Iggy Marquez 3:16:18 PM [place] [id number] [place] [address]
--- NOTE | ~2019-08-07 | OP ---
PATIENT NAME: LORETTA GUAMAN MEDICAL RECORD: [id number] :49 LOCATION:D. D.2125 ADMISSION DATE:08/07/19 SURGEON: CHRIS MACIAS MD DATE OF OPERATION: 08/08/2019 PROCEDURES: 1. PTCA stent left circumflex. 2. PTCA stent vein graft to RCA. 3. IFR. 4. Vein graft angiography. 5. MOODY angiography. 6. Left heart catheterization. 7. Selective coronary angiography. 8. Left ventriculogram. INDICATION: Angina and coronary artery disease. PROCEDURE IN DETAIL: After informed consent was obtained and after a detailed description of the risks, benefits as well as alternative proceed with angiogram and angioplasty. The right femoral area was prepped and draped in normal sterile fashion. Right femoral artery was cannulated via modified Seldinger technique with placement of 6-Divehi sheath. All catheters exchanged through this sheath. FINDINGS: Left ventriculogram was performed in standard 30-degree SCHREIBER view, reveals mild global hypokinesis, ejection fraction 40%. SELECTIVE CORONARY ANGIOGRAPHY: 1. Left main is with no significant angiographic disease. 2. Left anterior descending is totally occluded. 3. MOODY to the LAD is widely patent. Distal LAD is mildly diffusely diseased, but widely patent. 4. Left circumflex has previously placed stents, these are widely patent; however, there is 90% stenosis in the mid vessel that is new. 5. Right coronary is totally occluded. 6. Vein graft to the right coronary is patent. There are multiple areas that are previously stented. There is a questionable area of stenosis in the mid vessel. IFR is abnormal with 0.89. PTCA STENT OF THE VEIN GRAFT TO THE RCA: The stent used was a 3.5 x 12 mm Cobra taken to 25 atmospheres. Result was 0% residual stenosis. PTCA STENT OF THE LEFT CIRCUMFLEX: The stent used was a 2.5 x 18 mm Cobra. Result was 0% residual stenosis. OVERALL IMPRESSION: Successful percutaneous transluminal coronary angioplasty stent of the vein graft to the RCA as well as the reno-sparks circumflex, both going from 70% and 95% initial stenosis to 0% residual. TRANSINT:[id number] Voice Confirmation ID: [id number] DOCUMENT ID: [id number] OPERATIVE REPORT [id number] LORETTA GUAMAN CHRIS MACIAS MD CC: [id number] DICTATION DATE: 08/08/19 1512 PLATER HOT DIP: 08/08/19 2335 ADM IN [facility] [address] [facility] [place] [address]
[2019-08-07 15:17] LABS: BASOPHILS 0.4 % (0-2); EOSINOPHILS 2.4 % (0-7); HEMATOCRIT 41.6 % (42.0-54.0); HEMOGLOBIN 12.6 g/dL (13.5-17.5); IMMATURE GRANULOCYTES 0.4 % (0-5); LYMPHOCYTES 23.3 % (15-50); MCH 24.4 pg (26.0-34.0); MCHC 30.3 g/dL (31.0-37.0); MCV 80.5 fL (80.0-100.0); MEAN PLATELET VOLUME 9.1 fL (7.4-10.4); MONOCYTES 10.5 % (2-11); PLATELET COUNT 273 10x3/uL (130-400); RBC 5.17 10x6/uL (4.20-6.10); RDW 15.2 % (11.5-14.5); WBC 8.5 10x3/uL (4.8-10.8)
[2019-08-07 15:23] LABS: CALC OSMOLALITY 290 mosm/kg (275-300); CALCIUM 8.6 mg/dL (8.5-10.1); CHLORIDE - SERUM 110 mmol/L (98-107); CREATININE - SERUM 1.1 mg/dL (0.6-1.3); GLUCOSE 107 mg/dL (74-106); POTASSIUM - SERUM 4.2 mmol/L (3.5-5.1); SODIUM 145 mmol/L (136-145); UREA NITROGEN 18 mg/dL (7-18); eGFR NON AFRICAN AMERICAN 70 mL/min (90-120)
[2019-08-07 15:24] LABS: APTT 26.4 SECONDS (22.8-39.4); INR 1.04 (0.85-1.17); PROTIME 13.1 SECONDS (11.6-15.0)
[2019-08-07 15:40] LABS: ALBUMIN 3.1 g/dL (3.4-5.0); ALKALINE PHOSPHATASE 60 U/L (46-116); ALT (SGPT) 23 U/L (10-68); BILIRUBIN - TOTAL 0.25 mg/dL (0.2-1.3); CKMB 0.8 U/L (0.0-3.6); CREATINE KINASE 24 UL (21-232); MAGNESIUM - SERUM 2.2 mg/dL (1.8-2.4); PROTEIN - SERUM 6.3 g/dL (6.4-8.2)
[2019-08-07 15:42] LABS: TROPONIN-I < 0.017 ng/mL (0.000-0.060)
[2019-08-07 16:19] VITALS: BP 128/68
--- NOTE | 2019-08-07 17:50 | NUR ---
ATTEMPTED TO CALL REPORT TO FLOOR. WAITING ON EVS TO CLEAN ROOM AT THIS TIME.
--- NOTE | 2019-08-07 18:05 | NUR ---
PT LAYING IN BED. RESPIRATIONS ARE EVEN AND UNLABORED. NO DISTRESS NOTED. COLOR WNL FOR RACE. VSS. WILL CONTINUE TO MONITOR.
--- NOTE | 2019-08-07 18:10 | NUR ---
CONTACTED FLOOR TO CALL REPORT. WAITING ON EVS AT THIS TIME. ROOM IS DIRTY.
--- NOTE | 2019-08-07 19:15 | NUR ---
RECEIVED FROM ER VIA WHEELCHAIR, A&OX4, [id number], HISTORY AND MEDS COMPLETE, PROVIDED A SANDWICH AND DRINK, BED IS LOW, SRX2, CALL LIGHT IN REACH, BED ALARM IS ON, WILL CONTINUE PLAN OF CARE
[2019-08-07 20:40] VITALS: BP 157/76
[2019-08-08 00:30] VITALS: BP 161/83
--- NOTE | 2019-08-08 01:35 | NUR ---
I have reviewed this patient and I concur with the Shift Assessment completed by the Licensed Practical Nurse today this shift.
[2019-08-08 01:45] VITALS: BP 157/76
--- NOTE | 2019-08-08 02:13 | NUR ---
ADMISSION ASSESSMENT COMPLETED. PT HAD LFA/HAND WRAPPED WITH PINK COBAN. STATES IT IS FROM A FALL AT HOME 3-4 DAYS AGO ANG THE CURRENT DRESSING HAS BEEN IN PLACE SINCE HIS DAUGHTER CHANGED IT 2 DAYS AGO. PRIMARY NURSE REMOVED DRESSING, CLEANSED ENTIRE LOWER FOREARM AND HAND WITH WOUND CLEANSER, APPLIED BACTROBAN TO ABRASIONS/SORES, NON ADHERENT DRESSINGS APPLIED AND SECURED WITH SMALL KERLIX. PT IS NPO FOR HEART CATH PER DR MACIAS IN AM.
[2019-08-08 04:36] VITALS: BP 119/51
[2019-08-08 06:48] LABS: BASOPHILS 0.6 % (0-2); EOSINOPHILS 2.6 % (0-7); HEMATOCRIT 39.2 % (42.0-54.0); HEMOGLOBIN 11.9 g/dL (13.5-17.5); IMMATURE GRANULOCYTES 0.2 % (0-5); LYMPHOCYTES 28.6 % (15-50); MCH 24.1 pg (26.0-34.0); MCHC 30.4 g/dL (31.0-37.0); MCV 79.4 fL (80.0-100.0); MEAN PLATELET VOLUME 9.4 fL (7.4-10.4); MONOCYTES 7.4 % (2-11); NEUTROPHILS 60.6 % (40-80); PLATELET COUNT 282 10x3/uL (130-400); RBC 4.94 10x6/uL (4.20-6.10); RDW 15.1 % (11.5-14.5); WBC 8.3 10x3/uL (4.8-10.8)
[2019-08-08 06:50] LABS: INR 1.07 (0.85-1.17); PROTIME 13.4 SECONDS (11.6-15.0)
--- NOTE | 2019-08-08 07:20 | NUR ---
RECIEVE REPORT. RESTING IN BED WITH EYES CLOSED. BED ALARM ON. NO SIGNS OF DISTRESS. CONTINUE PLAN OF CARE AND SAFETY PRECAUTIONS.
[2019-08-08 08:17] VITALS: BP 170/81
[2019-08-08 12:00] VITALS: BP 132/75
--- NOTE | 2019-08-08 14:24 | NUR ---
TAKEN TO INSTRUCTOR KINDERGARTEN VIA BED.
[2019-08-08 14:53] VITALS: Ht 167.6 cm; Wt 65.8 kg
--- NOTE | 2019-08-08 15:10 | HP ---
PATIENT: LORETTA CONTE MEDICAL RECORD: [id number] ACCOUNT: [id number] LOCATION:[address] : [birth year] ADMISSION DATE: 08/07/19 PCP: KAI CROSS MD HISTORY AND PHYSICAL EXAMINATION DATE OF SERVICE: 08/08/2019 DIAGNOSES: 1. Unstable angina. 2. Coronary artery disease. 3. Previous percutaneous transluminal coronary angioplasty stent. 4. Smoking. 5. Chronic obstructive pulmonary disease. 6. Hypertension. 7. Hyperlipidemia. HISTORY OF PRESENT ILLNESS: Mr. Cnote has a past history of coronary artery disease, multivessel PTCA stent, but none since 2012. He presents with 1 week of increasing episodes of chest pain, chest pressure compatible with angina, very typical angina, dull aching pressure, elephant sitting on his chest sensation, it has progressed. He is having episodes of rest pain. It is just like that of his previous angina. He is on beta apollo, diuretic, long-acting nitrate, but continues to have symptoms despite this. PHYSICAL EXAMINATION: CONSTITUTIONAL/GENERAL APPEARANCE: Well nourished, well developed, appears stated age. EYES: Lids and conjunctivae noninjected. No discharge. No pallor. ENT: Lips within normal limit. No cyanosis. No pallor. NECK: Carotid arteries, bilateral normal upstroke. No bruits. No thrills. No jugular venous pressure or distention. CERVICAL LYMPH NODES: Nontender. Nonenlarged. THYROID: Not enlarged. No nodules. CARDIOVASCULAR: Precordial exam, nondisplaced. No heaves or pericardial thrills. Rate and rhythm, regular. Heart sounds, normal S1, normal S2. No S3, no gallop, no rub. Systolic murmur, not heard. Diastolic murmur, not heard. RESPIRATORY: Respiratory effort, unlabored. Normal curvature. No thoracic deformity. No chest wall tenderness. Percussion, resonant. Auscultation, clear. No wheezes, no rales, no rhonchi. ABDOMEN: Soft, nondistended, nontender. No abdominal pain, no vomiting and normal appetite. MUSCULOSKELETAL: No joint tenderness, normal gait, normal tone. SKIN: Warm and dry. OVERALL IMPRESSION: Unstable angina in an escalating fashion. At this time, his heart rates in the 50s and 60s. Systolic blood pressure is under 120s, hence he is on optimal medical therapy. We will proceed with coronary angiography. Further care depends upon findings of the angiography. TRANSINT:[id number] Voice Confirmation ID: [id number] DOCUMENT ID: [id number] HISTORY AND PHYSICAL [id number] LORETTA CONTE JEFFREY MD at 1510 CC: [id number] DICTATION DATE: 08/08/19922 SALES CORRESPONDENT: 08/08/19 1115 ADM IN [place] [id number] [place] [id number]
--- NOTE | 2019-08-08 15:42 | NUR ---
ARRIVE BACK TO ROOM VIA BED FROM AGING BOX HAND. ALERT AND ORIENTED X4. FAMILY AT BEDSIDE. RT GROIN DRESSING CLEAN DRY INTACT. FREE FROM HEMATOMA. FREE FROM BLEEDING. BP-142/77, HR-58 [place]. PULSE PALPABLE BILATERALLY. ENCOURAGE TO REMAIN FLAT FOR NEXT 4HOURS. CONTINUE PLAN OF CARE AND SAFETY PRECAUTIONS.
--- NOTE | 2019-08-08 20:10 | NUR ---
EVENING ROUNDS COMPLETED. VSS, AAOX3, NO S/S OF DISTRESS. PT DENIES ANY PAIN. DRESSING TO L.HAND C/D/I. GENERALIZED BRUISING NOTED. CANE @ BEDSIDE. DIET SODA PROVIDED PER PT'S REQUEST. PT DENIES ANY FURTHER NEEDS AT THIS TIME. WILL CPOC. CL WITHIN REACH, BED IN LOW, SR UP X2.
[2019-08-08 20:37] VITALS: BP 125/72
[2019-08-09 00:30] VITALS: BP 143/78
[2019-08-09 04:32] VITALS: BP 151/83
--- NOTE | 2019-08-09 07:20 | NUR ---
RECIEVE REPORT. ALERT AND ORIENTED X4. SITTING UP IN CHAIR TALKING ON PHONE. DENIES ANY NEEDS AT THIS TIME. CONTINUE PLAN OF CARE AND SAFETY PRECAUTIONS.
[2019-08-09 08:16] VITALS: BP 171/79
--- NOTE | 2019-08-09 08:53 | NUR ---
PATIENT TO REFUSE FLU SHOT.
--- NOTE | 2019-08-09 13:54 | NUR ---
ALERT AND ORIENTED X4. SITTING UP IN CHAIR. DC RT AC IV TIP INTACT. FAMILY AT BEDSIDE. DISCHARGE INSTRUCTIONS GIVEN VERBALLY AND WRITTEN. DISCHARGE PAPERS SIGNED ON CHART. ESCORT TO RIDE VIA WHEELCHAIR. REMAINS FREE FROM INJURY.
--- NOTE | 2019-08-09 17:01 | MORECARE ---
CASE MANAGEMENT DISCHARGE SUMMARY PATIENT: LORETTA GUAMAN UNIT: [id number] ADM DATE: 08/07/19 AGE: 73 : 49 SEX: M ROOM/BED: D.5890 AUTHOR: NATALI CORDOVA PHYSICIAN: REFERRING PHYSICIAN: CHRIS MACIAS MD DATE OF SERVICE: 08/09/19 Discharge Plan Patient Name: LORETTA GUAMAN [facility] [facility] 1945 Planned Disposition: Home Anticipated Discharge Date: 08/09/19 Discharge Date: 08/09/2019 Expected LOS: 2 Initial Reviewer: [id number] Initial Review Date: 08/09/2019 Generated: 08/09/19 6:00 pm Patient Name: LORETTA GUAMAN Page [id number] at 1701 All edits/amendments must be made on the electronic document DICTATION DATE: 08/09/191699 [employer]: LES 08/09/191699 RPT#: [id number] DC DATE:08/09/19 STATUS: DIS IN [facility] [address] [place] [address] END OF REPORT
== END 2019-08-09 13:56 | disposition home or self-care (01) ==
LOC: OBSVTIME → D.ER 14:35 → D.OPS 14:35 → D.M2 16:24 → D.ER 16:24 → D.M2 16:24 → D.ER 18:53 → OBSVTIME 19:00 → D.OPS 08-09 13:56 → D.M2 08-09 13:56
PROVIDERS: Family Medicine; ATTEND Internal Medicine Interventional Cardiology
DX: I25.110 Atherosclerotic heart disease of native coronary artery with unstable angina pectoris (principal); J44.9 Chronic obstructive pulmonary disease, unspecified; I10 Essential (primary) hypertension; E78.5 Hyperlipidemia, unspecified; F17.200 Nicotine dependence, unspecified, uncomplicated